=== PATIENT | female | born 1930 | race Caucasian/White ===

== ENCOUNTER 2016-10-15 00:02 | Emergency (ER) | payer OTHER, MEDICARE ==
[2016-10-15 00:19] VITALS: BP 169/86; BMI 24.2
--- NOTE | 2016-10-15 00:28 | DR.GENAD ---
HPI - PCP Primary Care Physician: BERNICE HAUSER - Complaint/Symptoms Chief Complaint Doctors Comments: Patient admits to being dizzy tonight while lying in bed. She denies any prior history of dizziness. She denies nausea, vomiting or diarrhea. She denies cardiopulmonary disease. Chief Complaint:: DIZZINESS WHILE LYING IN BED RESOLVED THEN CAME BACK AGAIN, Self Treatment fo Chief Complaint: NONE - Source History Provided: Patient - Mode of Arrival Mode of Arrival: Wheelchair - Timing Onset of Chief Complaint: 10/15/16 PMH - PMH Past Medical History: Yes Past Medical History: Anxiety, Arthritis, COPD, Depression, Hypertension Past Surgical History: Yes Surgical History: 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, Hysterectomy, Joint Replacement, Other - Family History History of Family Medical Conditions: Yes Family Medical History: Cancer, Heart Failure - Social History Does patient currently use any type of tobacco product: No Have you used tobacco products in the last 12 months: No Type of Tobacco Use: None Does any household member use tobacco: No Alcohol Use: None Do you use any recreational Drugs:: No Lives With: Family Lives Where: Home - infectious screening In the last 2 months have you had wt loss of >10#?: NO Have you had fever, night sweats or hemotysis?: No Have you traveled outside the country in the last 6 months?: No Isolation: Standard ROS - Review of Systems Constitutional: No Symptoms Reported Eyes: No Symptoms Reported ENTM: No Symptoms Reported Respiratoy: No Symptoms Reported Cardiovascular: No Symptoms Reported Gastrointestinal/Abdominal: No Symptoms Reported Genitourinary: No Symptoms Reported Neurological: Dizziness Musculoskeletal: No Symptoms Reported Integumentary: No Symptoms Reported Hematologic/Lymphatic: No Symptoms Reported Endocrine: No Symptoms Reported Psychiatric: No Symptoms Reported All Other Systems: Reviewed and Negative PE - Vital Signs Vitals: Temperature 97.8 F Pulse Rate 86 Respiratory Rate 16 Blood Pressure 169/86 O2 Sat by Pulse Oximetry 97 - General Limitations: No Limitations General Appearance: Alert, In No Apparent Distress - Head Head Exam: Normal Inspection, Atraumatic - Eyes Eye exam: Normal Appearance, PERRL, EOMI - ENT ENT Exam: Normal Exam External Ear Exam: Normal External Inspection TM/Canal Exam: Bilateral Normal Nose Exam: Normal Nose Exam Mouth Exam: Normal Inspection Throat Exam: Normal Inspection - Neck Neck Exam: Normal Inspection, Full ROM - Chest Chest Inspection: Normal Inspection - Respiratory Respiratory Exam: Normal Lung Sounds Bilat Respiratory Exam: Bilateral Clear to Auscultation - Cardiovascular Cardiovascular Exam: Regular Rate, Normal Rhythm - Abdominal Exam Abdominal Exam: Normal Inspection Abdominal Tenderness: negative: RUQ, RLQ, LUQ, LLQ, Epigastrium, Suprapubic, Diffuse, Mild, Moderate, Severe, Other - Extremities Extremities Exam: Normal Inspection, Full ROM - Back Back Exam: Normal Inspection, Full ROM - Neurologic Neurological Exam: Alert, Oriented X3, CN II-XII Intact - Psychiatric Psychiatric Exam: Normal Affect - Skin Skin Exam: Warm, Dry, Intact ROR - Labs Reviewed Laboratory Results Reviewed?: Yes (low potassium, elevated glucose) Result Diagrams: 10/15/16 00:36 04 00:36 Laboratory: WBC 3.3 X10^3/uL (3.6-10.0) L 10/15/16 00:36 RBC 4.49 X10^6/uL (3.5-5.4) 10/15/16 00:36 Hgb 13.9 g/dL (12.0-16.0) 10/15/16 00:36 Hct 41.7 % (36.0-47.0) 10/15/16 00:36 MCV 92.9 fL (80.0-100.0) 10/15/16 00:36 MCH 30.9 pg (27.0-34.0) 10/15/16 00:36 MCHC 33.3 g/dL (33.0-35.0) 10/15/16 00:36 RDW 14.6 % (11.6-16.5) 10/15/16 00:36 Plt Count 142 X10^3/uL (150.0-450.0) L 10/15/16 00:36 MPV 8.4 fL (7.4-11.0) 10/15/16 00:36 Neut % 84.2 % (42.0-75.0) H 10/15/16 00:36 Lymph % 12.9 % (21.0-51.0) L 10/15/16 00:36 [place] % 2.2 % (0.0-13.0) 10/15/16 00:36 Eos % 0.2 % (0.9-2.9) L 10/15/16 00:36 Baso % 0.5 % (0.2-1.0) 10/15/16 00:36 Neut # 2.7 x10^3/uL (2.2-4.8) 10/15/16 00:36 Lymph # 0.4 X10^3/uL (1.3-2.9) L 10/15/16 00:36 [place] # 0.1 x10^3/uL (0.3-0.8) L 10/15/16 00:36 Eos # 0.0 x10^3/uL (0.0-0.2) 10/15/16 00:36 Baso # 0.0 X10^3/uL (0.0-0.1) 10/15/16 00:36 Absolute Nucleated RBC 0.0 /100WBC 10/15/16 00:36 Sodium 142 mmol/L (136-145) 10/15/16 00:36 Corrected Sodium 145 mmol/L (136-145) 10/15/16 00:36 Potassium 3.4 mmol/L (3.5-5.1) L 10/15/16 00:36 Chloride 104 mmol/L (98-107) 10/15/16 00:36 Carbon Dioxide 28.5 mmol/L (21-32) 10/15/16 00:36 BUN 20 mg/dL (7-18) H 10/15/16 00:36 Creatinine 0.71 mg/dL (0.55-1.02) 10/15/16 00:36 Est GFR (MDRD) Af Amer > 60 (>60) 10/15/16 00:36 Est GFR (MDRD) Non-Af > 60 (>60) 10/15/16 00:36 Glucose 213 mg/dL (65-99) H 10/15/16 00:36 Calcium 8.8 mg/dL (8.5-10.1) 10/15/16 00:36 Corrected Calcium TNP 10/15/16 00:36 Total Bilirubin 0.30 mg/dL (0.2-1.0) 10/15/16 00:36 AST 30 Units/L (15-37) 10/15/16 00:36 ALT 28 Units/L (12-78) 10/15/16 00:36 Alkaline Phosphatase 112 Units/L (46-116) 10/15/16 00:36 Total Protein 7.6 g/dL (6.4-8.2) 10/15/16 00:36 Albumin 3.8 g/dL (3.4-5.0) 10/15/16 00:36 Globulin 3.8 g/dL (2.5-4.5) 10/15/16 00:36 Albumin/Globulin Ratio 1.0 Ratio (1.1-2.1) L 10/15/16 00:36 - XRAY XRAY Interpreted by: Radiologist (CT Brain: No acute intracranial procedd is identified. Confluent moderate bilateral periventricular and deep white matter hypoattenuation is nonspecific, clinical correlation for history of chronic microvascular ischemic disease, chronic demyelinating process or systemic inflammatory process/post therapy treatment effects.) - Diagnosis Discharge Problem: Hypokalemia, Dehydration, mild - Discharge Plan Condition: Stable - Follow ups/Referrals Follow ups/Referrals: JAVON HAUSER [Primary Care Provider] - 3 days - Instructions
[2016-10-15 00:44] LABS: BASOPHILS % (AUTO) 0.5 % (0.2-1.0); EOSINOPHILS % (AUTO) 0.2 % (0.9-2.9); HEMATOCRIT 41.7 % (36.0-47.0); HEMOGLOBIN 13.9 g/dL (12.0-16.0); LYMPHOCYTES # (AUTO) 0.4 X10^3/uL (1.3-2.9); LYMPHOCYTES % (AUTO) 12.9 % (21.0-51.0); MEAN CORPUSCULAR HEMOGLOBIN 30.9 pg (27.0-34.0); MEAN CORPUSCULAR HGB CONC 33.3 g/dL (33.0-35.0); MEAN CORPUSCULAR VOLUME 92.9 fL (80.0-100.0); MEAN PLATELET VOLUME 8.4 fL (7.4-11.0); MONOCYTES # (AUTO) 0.1 x10^3/uL (0.3-0.8); MONOCYTES % (AUTO) 2.2 % (0.0-13.0); NEUTROPHILS # (AUTO) 2.7 x10^3/uL (2.2-4.8); NEUTROPHILS % (AUTO) 84.2 % (42.0-75.0); PLATELET COUNT 142 X10^3/uL (150.0-450.0); RED BLOOD COUNT 4.49 X10^6/uL (3.5-5.4); RED CELL DISTRIBUTION WIDTH 14.6 % (11.6-16.5); WHITE BLOOD COUNT 3.3 X10^3/uL (3.6-10.0)
[2016-10-15 00:57] LABS: ALANINE AMINOTRANSFERASE 28 Units/L (12-78); ALBUMIN 3.8 g/dL (3.4-5.0); ALKALINE PHOSPHATASE 112 Units/L (46-116); ASPARTATE AMINO TRANSFERASE 30 Units/L (15-37); BLOOD UREA NITROGEN 20 mg/dL (7-18); CALCIUM 8.8 mg/dL (8.5-10.1); CARBON DIOXIDE 28.5 mmol/L (21-32); CHLORIDE 104 mmol/L (98-107); COR NA(FOR HYPERGLY) 145 mmol/L (136-145); CREATININE 0.71 mg/dL (0.55-1.02); GLUCOSE 213 mg/dL (65-99); SODIUM 142 mmol/L (136-145); TOTAL PROTEIN 7.6 g/dL (6.4-8.2); eGFR BLACK RACES > 60 (>60); eGFR NON BLACK RACES > 60 (>60)
--- NOTE | 2016-10-15 01:52 | CT ---
CT brain without contrast Indication: Dizziness while lying in bed Comparison: None available Technique: Multiple axial images of the brain were obtained from the skull base to the vertex without administr ation of IV contrast. Coronal and sagittal images were also provided. Radiation dose reduction techniques were performed utilizing adjustment for MA/kVP based on patient body size. Findings: There is complete moderate bilateral periventricular deep white matter hypoattenuation. Opacificatio n of bilateral basal ganglia. The mild generalized cerebral atrophy. No acute intraparenchymal hemorrhage or mass can be identified. No extra-axial fluid collections ar e seen. No alteration in the attenuation of the brain parenchyma can be identified to suggest acute or subacute ischemic change. The ventricular system is symmetric and nondilated. The extracranial structures are grossly unremarkable. IMPRESSION: 1.No acute intracranial process is identified. 2.Confluent moderate bilateral periventricular and deep white matter hypoattenuation is nonspecific, clinical correlation for history of chronic microvascular ischemic disease, chronic demyelinating p rocess or systemic inflammatory process/post therapy treatment effects. Reported By:
[2016-10-15] MEDS ORDERED: POTASSIUM CHLORIDE LIQ 20 MEQ UDC PO ONE (02:12)
[2016-10-15] MEDS ORDERED: ANTIVERT TAB 25 MG PO ONE (02:20)
[2016-10-15] MEDS ORDERED: K-DUR TAB 20 MEQ PO ONE (02:21)
[2016-10-15] MEDS ORDERED: ANTIVERT TAB 25 MG ONE (02:22)
[2016-10-15] MEDS ORDERED: NS 500 ML IV 500 ML IV ONE ×2 (02:26→02:31)
[2016-10-15 02:41] LABS: CKMB % 2.9 % (<4); CREATINE KINASE 34 Units/L (26-192); CREATINE KINASE MB < 1.0 ng/mL (0-4.0); TROPONIN I < 0.02 ng/mL (0-1.5)
== END 2016-10-15 03:20 | disposition home or self-care (01) ==
LOC: ER 00:16
DX: E87.6 Hypokalemia (principal); E86.0 Dehydration; R42 Dizziness and giddiness
CPT/HCPCS: 36415; 70450; 80053; 82550; 82553; 84484; 85025; 93005; 93010; 96365; 99283; A4222

== ENCOUNTER → 2016-11-04 | Outpatient (CLI) | payer OTHER, MEDICARE ==
[2016-10-15 00:19] VITALS: BP 169/86
[2016-11-04 10:17] LABS: CHOL/HDL RATIO 3.8 (0.0-5.0)
== END ==
LOC: LAB 08:39
PROVIDERS: ATTEND Nurse Practitioner Family
DX: Z76.0 Encounter for issue of repeat prescription (principal)
CPT/HCPCS: 36415; 80061; 82306; 84132

== ENCOUNTER 2016-11-23 16:03 | Emergency (ER) | payer OTHER, MEDICARE ==
[2016-11-23 16:07] VITALS: BP 157/89; BMI 24.8
--- NOTE | 2016-11-23 16:44 | DR.GENAD ---
HPI - PCP Primary Care Physician: Tremaine - HPI Comment HPI Comment: PER DAUGHTER, PATIENT STARTED HAVING CHEST TIGHTNESS AND SOB AND ACTING ANXIOUS, DAUGHTER GAVE PRN ATIVAN AND PATIENT IMPROVED, SHE IS FINE IN ED. DENIES CP. SHE HAS HAD SIMILAR EPISODE IN THE PAST, NO FEVER. - Complaint/Symptoms Chief Complaint Doctors Comments: SOB, FEELING BAD, NOTED TODAY Chief Complaint:: Pts states she started feeling funny today and was short of breath and very anxious. Pts daughter states she gave her an Ativan 1mg and now the pt is feeling better. Pts daughter states that she backed off her ativan and has not been taking it. - Nurses notes reviewed Nurses Notes Review: Yes - Source History Provided: Patient - Mode of Arrival Mode of Arrival: Ambulatory - Timing Onset of Chief Complaint: 11/23/16 Came on: Suddenly - Duration Duration: Constant Duration: Hours - Severity Severity: Moderate PMH - PMH Past Medical History: Yes Past Medical History: Anxiety, Arthritis, COPD, Depression, Hypertension Past Surgical History: Yes Surgical History: 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, Hysterectomy, Joint Replacement, Other - Family History History of Family Medical Conditions: Yes Family Medical History: Cancer, Heart Failure - Social History Does patient currently use any type of tobacco product: No Have you used tobacco products in the last 12 months: No Type of Tobacco Use: None Does any household member use tobacco: No Alcohol Use: None Do you use any recreational Drugs:: No Lives With: Family Lives Where: Home - infectious screening In the last 2 months have you had wt loss of >10#?: NO Have you had fever, night sweats or hemotysis?: No Have you traveled outside the country in the last 6 months?: No Isolation: Standard ROS - Review of Systems Constitutional: Weakness, Fatigue. negative: Chills, Diaphoresis, Fever, Loss of Appetite Eyes: No Symptoms Reported. negative: Eye Pain, Discharge ENTM: negative: Ear Pain, Nose Discharge, Nose Congestion, Throat Pain Respiratoy: Short of Breath (ON EXERTION.). negative: Productive Cough, Non- Productive Cough, Wheezing, Hemoptysis Cardiovascular: Chest Pain, Edema (ANKLE). negative: Palpitations Gastrointestinal/Abdominal: negative: Abdominal Pain Genitourinary: No Symptoms Reported Neurological: Weakness. negative: Headache, Dizziness Musculoskeletal: Muscle Pain Integumentary: Rash (STASIS DERMATITIS). negative: Change in Color, Bruises, Juandice Hematologic/Lymphatic: Easy Bruising Endocrine: No Symptoms Reported All Other Systems: Reviewed and Negative PE - Vital Signs Vitals: Temperature 98.6 F Pulse Rate 74 Respiratory Rate 18 Blood Pressure 157/89 O2 Sat by Pulse Oximetry 94 - General Limitations: No Limitations General Appearance: Alert - Head Head Exam: Normal Inspection - Eyes Eye exam: Normal Appearance - ENT ENT Exam: Normal External Ear Exam External Ear Exam: Normal External Inspection TM/Canal Exam: Bilateral Normal Nose Exam: Normal Nose Exam Mouth Exam: Normal Inspection Throat Exam: Normal Inspection - Neck Neck Exam: Trachea Midline. negative: Tenderness, Meningismus, Lymphadenopathy - Chest Chest Inspection: Symmetric Chest Wall Rise - Respiratory Respiratory Exam: Normal Lung Sounds Bilat Respiratory Exam: Bilateral Rhonchi, Lower Rhonchi - Cardiovascular Cardiovascular Exam: Regular Rate, Normal Rhythm - Abdominal Exam Abdominal Exam: Normal Bowel Sounds, Soft. negative: Tenderness - Extremities Extremities Exam: Edema - Back Back Exam: Paraspinal Tenderness - Neurologic Neurological Exam: Alert, Oriented X3 - Psychiatric Psychiatric Exam: Normal Affect, Normal Mood - Skin Skin Exam: Erythema MDM - Additional Information Additional Information Obtained From: Family - Differential Diagnosis Differential Diagnosis: ARRYTHMIA, [place], PNEUMONIA, DEHYDRATION, Course - Treatment Treatment: SEE ORDERS. PATIENT IMPROVED AFTER DAUGHTER GAVE PATIENT MED FOR PRN ANXIETY. - Reevaluation 1st: Improved - Education/Counseling Education/Counseling: Patient, Family, Education Educated On: Diagnosis, Needs for Follow Up ROR - Labs Reviewed Laboratory Results Reviewed?: Yes Result Diagrams: 11/23/16 17:04 11/23/16 17:04 Laboratory: WBC 4.9 X10^3/uL (3.6-10.0) 11/23/16 17:04 RBC 4.61 X10^6/uL (3.5-5.4) 11/23/16 17:04 Hgb 14.3 g/dL (12.0-16.0) 11/23/16 17:04 Hct 42.9 % (36.0-47.0) 11/23/16 17:04 MCV 93.0 fL (80.0-100.0) 11/23/16 17:04 MCH 31.0 pg (27.0-34.0) 11/23/16 17:04 MCHC 33.3 g/dL (33.0-35.0) 11/23/16 17:04 RDW 15.0 % (11.6-16.5) 11/23/16 17:04 Plt Count 155 X10^3/uL (150.0-450.0) 11/23/16 17:04 MPV 8.2 fL (7.4-11.0) 11/23/16 17:04 Neut % 75.4 % (42.0-75.0) H 11/23/16 17:04 Lymph % 14.7 % (21.0-51.0) L 11/23/16 17:04 [place] % 8.0 % (0.0-13.0) 11/23/16 17:04 Eos % 1.2 % (0.9-2.9) 11/23/16 17:04 Baso % 0.7 % (0.2-1.0) 11/23/16 17:04 Neut # 3.7 x10^3/uL (2.2-4.8) 11/23/16 17:04 Lymph # 0.7 X10^3/uL (1.3-2.9) L 11/23/16 17:04 [place] # 0.4 x10^3/uL (0.3-0.8) 11/23/16 17:04 Eos # 0.1 x10^3/uL (0.0-0.2) 11/23/16 17:04 Baso # 0.0 X10^3/uL (0.0-0.1) 11/23/16 17:04 Absolute Nucleated RBC 0.0 /100WBC 11/23/16 17:04 Sodium 143 mmol/L (136-145) 11/23/16 17:04 Corrected Sodium TNP 11/23/16 17:04 Potassium 3.9 mmol/L (3.5-5.1) 11/23/16 17:04 Chloride 105 mmol/L (98-107) 11/23/16 17:04 Carbon Dioxide 31.9 mmol/L (21-32) 11/23/16 17:04 BUN 13 mg/dL (7-18) 11/23/16 17:04 Creatinine 0.57 mg/dL (0.55-1.02) 11/23/16 17:04 Est GFR (MDRD) Af Amer > 60 (>60) 11/23/16 17:04 Est GFR (MDRD) Non-Af > 60 (>60) 11/23/16 17:04 Glucose 94 mg/dL (65-99) 11/23/16 17:04 Calcium 8.9 mg/dL (8.5-10.1) 11/23/16 17:04 Corrected Calcium TNP 11/23/16 17:04 Total Bilirubin 0.40 mg/dL (0.2-1.0) 11/23/16 17:04 AST 30 Units/L (15-37) 11/23/16 17:04 ALT 31 Units/L (12-78) 11/23/16 17:04 Alkaline Phosphatase 102 Units/L (46-116) 11/23/16 17:04 Creatine Kinase 29 Units/L (26-192) 11/23/16 17:04 CK-MB (CK-2) < 1.0 ng/mL (0-4.0) 11/23/16 17:04 CK/CKMB % Calc 3.5 % (<4) 11/23/16 17:04 Troponin I < 0.02 ng/mL (0-1.5) 11/23/16 17:04 Total Protein 7.6 g/dL (6.4-8.2) 11/23/16 17:04 Albumin 3.9 g/dL (3.4-5.0) 11/23/16 17:04 Globulin 3.7 g/dL (2.5-4.5) 11/23/16 17:04 Albumin/Globulin Ratio 1.1 Ratio (1.1-2.1) 11/23/16 17:04 Specimen Type Clean catch urine 11/23/16 17:04 Urine Color Pale yellow (YELLOW) 11/23/16 17:04 Urine Appearance Clear (CLEAR) 11/23/16 17:04 Urine pH 7.0 (5.0 - 8.0) 11/23/16 17:04 Ur Specific [place] 1.010 (1.000-1.030) 11/23/16 17:04 Urine Protein Negative (NEGATIVE) 11/23/16 17:04 Urine Glucose (UA) Negative (NEGATIVE) 11/23/16 17:04 Urine Ketones Negative (NEGATIVE) 11/23/16 17:04 Urine Occult Blood Negative (NEGATIVE) 11/23/16 17:04 Urine Nitrite Negative (NEGATIVE) 11/23/16 17:04 Urine Bilirubin Negative (NEGATIVE) 11/23/16 17:04 Urine Urobilinogen Normal (NORMAL) 11/23/16 17:04 Ur Leukocyte Esterase Negative (NEGATIVE) 11/23/16 17:04 Urine RBC 0-1 /HPF (NEGATIVE) 11/23/16 17:04 Urine WBC None seen /HPF (NEGATIVE) 11/23/16 17:04 Ur Squamous Epith Cells Few /HPF (NEGATIVE) 11/23/16 17:04 Amorphous Sediment Trace /HPF (NEGATIVE) 11/23/16 17:04 Urine Bacteria Trace /HPF (NEGATIVE) 11/23/16 17:04 Ur Culture Indicated? No/not indicated 11/23/16 17:04 - EKG Rhythm: NSR (EKG NOTED.) - Diagnosis Discharge Problem: Generalized anxiety disorder - Discharge Plan Disposition: 01 HOME, SELF-CARE Condition: Stable - Follow ups/Referrals Follow ups/Referrals: Candis Penaloza [Primary Care Provider] - 3 days - Instructions Instructions: Generalized Anxiety Disorder Additional Instructions: RETURN TO ED IF WORSE.
[2016-11-23] MEDS ORDERED: ZOFRAN INJ 4 MG VIAL ONE (16:57)
[2016-11-23 17:13] LABS: BASOPHILS % (AUTO) 0.7 % (0.2-1.0); EOSINOPHILS # (AUTO) 0.1 x10^3/uL (0.0-0.2); EOSINOPHILS % (AUTO) 1.2 % (0.9-2.9); HEMATOCRIT 42.9 % (36.0-47.0); HEMOGLOBIN 14.3 g/dL (12.0-16.0); LYMPHOCYTES # (AUTO) 0.7 X10^3/uL (1.3-2.9); LYMPHOCYTES % (AUTO) 14.7 % (21.0-51.0); MEAN CORPUSCULAR HGB CONC 33.3 g/dL (33.0-35.0); MEAN PLATELET VOLUME 8.2 fL (7.4-11.0); MONOCYTES # (AUTO) 0.4 x10^3/uL (0.3-0.8); NEUTROPHILS # (AUTO) 3.7 x10^3/uL (2.2-4.8); NEUTROPHILS % (AUTO) 75.4 % (42.0-75.0); PLATELET COUNT 155 X10^3/uL (150.0-450.0); RED BLOOD COUNT 4.61 X10^6/uL (3.5-5.4); WHITE BLOOD COUNT 4.9 X10^3/uL (3.6-10.0)
[2016-11-23 17:22] LABS: BILIRUBIN,URINE NEGATIVE (NEGATIVE); BLOOD/HEMOGLOBIN,URINE NEGATIVE (NEGATIVE); GLUCOSE, URINE NEGATIVE (NEGATIVE); KETONES,URINE NEGATIVE (NEGATIVE); LEUKOCYTE ESTERASE ,URINE NEGATIVE (NEGATIVE); NITRITES,URINE NEGATIVE (NEGATIVE); PROTEIN,URINE NEGATIVE (NEGATIVE); UROBILINOGEN,URINE NORMAL (NORMAL)
[2016-11-23 17:34] LABS: APPEARANCE,URINE CLEAR (CLEAR); COLOR,URINE PALE YELLOW (YELLOW); RBC,URINE 0-1 /HPF (NEGATIVE)
[2016-11-23 17:35] LABS: AMORPHOUS SEDIMENT,UR TRACE /HPF (NEGATIVE); BACTERIA,URINE TRACE /HPF (NEGATIVE); SQUAMOUS EPITHELIAL CELL,UR FEW /HPF (NEGATIVE)
[2016-11-23 17:51] LABS: BLOOD UREA NITROGEN 13 mg/dL (7-18); CALCIUM 8.9 mg/dL (8.5-10.1); CARBON DIOXIDE 31.9 mmol/L (21-32); CHLORIDE 105 mmol/L (98-107); CREATININE 0.57 mg/dL (0.55-1.02); GLUCOSE 94 mg/dL (65-99); SODIUM 143 mmol/L (136-145); TROPONIN I < 0.02 ng/mL (0-1.5); eGFR BLACK RACES > 60 (>60); eGFR NON BLACK RACES > 60 (>60)
[2016-11-23 17:56] LABS: ALANINE AMINOTRANSFERASE 31 Units/L (12-78); ALBUMIN 3.9 g/dL (3.4-5.0); ALKALINE PHOSPHATASE 102 Units/L (46-116); ASPARTATE AMINO TRANSFERASE 30 Units/L (15-37); CKMB % 3.5 % (<4); CREATINE KINASE 29 Units/L (26-192); CREATINE KINASE MB < 1.0 ng/mL (0-4.0); TOTAL PROTEIN 7.6 g/dL (6.4-8.2)
== END 2016-11-23 18:06 | disposition home or self-care (01) ==
LOC: ER 16:12
DX: F41.1 Generalized anxiety disorder (principal)
CPT/HCPCS: 36415; 80053; 81001; 82550; 82553; 84484; 85025; 93005; 93010; 99282; 99283; J2405

== ENCOUNTER → 2016-12-07 | Outpatient (CLI) | payer OTHER, MEDICARE ==
--- NOTE | 2016-12-07 15:04 | MG ---
Examination: Bilateral screening mammogram. Clinical history: Routine screening. Technique: Digital CC and MLO views of both breasts were obtained. Computer aided detection analysis was performed and used during the interpretation. Comparison: 12/05/2015, 10/22/2014, 10/22/2013. Findings: The breasts are composed of scattered fibroglandular densities. Benign-appearing calcifications and vascular calcifications are noted in the breasts bilaterally. Skin moles are present overlying both breasts. No suspicious mass, area of architectural distortion or suspicious cluster of microcalcifications is noted. Impression: 1. No mammographic evidence of malignancy. BI-RADS category 2-benign findings. Recommend routine annual screening mammogram. Diagnostic CAD was utilized and reviewed. * 0 (ZERO) - ASSESSMENT INCOMPLETE; ADDITIONAL IMAGING IS NEEDED. * 0C - ASSESSMENT INCOMPLETE, NEEDS ADDITIONAL IMAGING EVALUATION AND/OR PRIOR MAMMOGRAMS FOR COMPAR LYNDON. * 1/1 (ONE) - NEGATIVE. * 2/II (TWO) - BENIGN FINDINGS. * 3/III (THREE) - PROBABLY BENIGN FINDING; SHORT INTERVAL FOLLOW-UP SUGGESTED. * 4/IV (FOUR) - SUSPICIOUS ABNORMALITY; BIOPSY SHOULD BE CONSIDERED. * 5/V - HIGHLY SUSPICIOUS OF MALIGNANCY; BIOPSY SHOULD BE PERFORMED. * 6/IV - KNOWN BIOPSY PROVEN MALIGNANCY-APPROPRIATE ACTION SHOULD BE TAKEN. A NEGATIVE X-RAY REPORT SHOULD NOT DELAY BIOPSY IF A DOMINANT OR CLINICALLY SUSPICIOUS MASS IS PRESENT; 4 TO 8 PERCENT OF CANCERS ARE NOT IDENTIFIED BY X-RAY. A NEGATIVE REPORT MAY REINFORCE THE CLINICAL IMPRESSION. ADENOSIS AND DENSE BREASTS MAY OBSCURE AN UNDERLYING NEOPLASM. Reported By:
== END ==
LOC: RAD 11:07
PROVIDERS: ATTEND Nurse Practitioner Family
DX: Z12.31 Encounter for screening mammogram for malignant neoplasm of breast (principal)
CPT/HCPCS: 77067

== ENCOUNTER 2016-12-31 17:45 | Emergency (ER) | payer OTHER, MEDICARE ==
[2016-12-31 17:50] VITALS: BP 136/85; BMI 24.2
== END 2016-12-31 19:07 | disposition left against medical advice (07) ==
LOC: ER 17:55
DX: M79.602 Pain in left arm (principal)
CPT/HCPCS: 99281

== ENCOUNTER 2017-03-02 17:38 | Emergency (ER) | payer OTHER, MEDICARE ==
[2017-03-02 17:44] VITALS: BP 135/66; BMI 23.8
--- NOTE | 2017-03-02 18:05 | DR.GENAD ---
HPI - PCP Primary Care Physician: AP - Complaint/Symptoms Chief Complaint Doctors Comments: Patient is being treated by her primary care physician for sinusitis. Chief Complaint:: "SINUS INFRECTION" Self Treatment fo Chief Complaint: SEEN DOCTOR AP YESTERDAY - Source History Provided: Patient - Mode of Arrival Mode of Arrival: Ambulatory - Timing Onset of Chief Complaint: 02/23/17 PMH - PMH Past Medical History: Yes Past Medical History: Anxiety, Arthritis, COPD, Dementia, Depression, Hypertension Past Surgical History: Yes Surgical History: 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, [employer] Surgery, Hysterectomy, Joint Replacement - Family History History of Family Medical Conditions: Yes Family Medical History: Diabetes Mellitus, Cancer, [place], Coronary Artery Disease, Sudden Cardiac - Social History Does patient currently use any type of tobacco product: No Have you used tobacco products in the last 12 months: No Type of Tobacco Use: None Does any household member use tobacco: No Alcohol Use: None Do you use any recreational Drugs:: No Lives With: Family Lives Where: Home - infectious screening In the last 2 months have you had wt loss of >10#?: NO Have you had fever, night sweats or hemotysis?: No Have you traveled outside the country in the last 6 months?: No Isolation: Standard ROS - Review of Systems Eyes: No Symptoms Reported ENTM: No Symptoms Reported Respiratoy: No Symptoms Reported Cardiovascular: No Symptoms Reported Gastrointestinal/Abdominal: No Symptoms Reported Genitourinary: No Symptoms Reported Neurological: No Symptoms Reported Musculoskeletal: No Symptoms Reported Integumentary: No Symptoms Reported Hematologic/Lymphatic: No Symptoms Reported Endocrine: No Symptoms Reported Psychiatric: No Symptoms Reported All Other Systems: Reviewed and Negative PE - Vital Signs Vitals: Temperature 99.5 F Pulse Rate 84 Respiratory Rate 18 Blood Pressure [Left Arm] 136/75 Blood Pressure 135/66 O2 Sat by Pulse Oximetry 90 - General Limitations: Other (Early Dementia) General Appearance: Alert, In No Apparent Distress - Head Head Exam: Normal Inspection, Atraumatic - Eyes Eye exam: Normal Appearance, PERRL, EOMI - ENT ENT Exam: Normal Exam External Ear Exam: Normal External Inspection TM/Canal Exam: Bilateral Normal Nose Exam: Normal Nose Exam Mouth Exam: Normal Inspection Throat Exam: Normal Inspection - Neck Neck Exam: Normal Inspection, Full ROM - Chest Chest Inspection: Normal Inspection, Symmetric Chest Wall Rise - Respiratory Respiratory Exam: Normal Lung Sounds Bilat Respiratory Exam: Bilateral Clear to Auscultation - Cardiovascular Cardiovascular Exam: Regular Rate, Normal Rhythm - Abdominal Exam Abdominal Exam: Normal Inspection Abdominal Tenderness: negative: RUQ, RLQ, LUQ, LLQ, Epigastrium, Suprapubic, Diffuse, Mild, Moderate, Severe, Other - Extremities Extremities Exam: Normal Inspection, Full ROM - Back Back Exam: Normal Inspection, Full ROM - Neurologic Neurological Exam: Alert, Oriented X3, CN II-XII Intact - Psychiatric Psychiatric Exam: Normal Affect, Normal Mood - Skin Skin Exam: Warm, Dry, Intact ROR - XRAY XRAY Interpreted by: Radiologist (CT Sinus: Mild to moderate acute on chronic bilateral ethmoid sinusitis. Minimal maxillary sinus disease is noted.) - Diagnosis Discharge Problem: Sinusitis Qualifiers: Sinusitis location: ethmoidal Chronicity: acute Recurrence: recurrent Qualified Code(s): J01.21 - Acute recurrent ethmoidal sinusitis - Discharge Plan Condition: Stable - Follow ups/Referrals Follow ups/Referrals: Matthew Nelson [Primary Care Provider] - 3 days - Instructions
--- NOTE | 2017-03-02 19:03 | CT ---
HISTORY: Sinusitis, facial pressure Study: CT paranasal sinuses without contrast Comparison: January 01, 2017 and September 20, 2012 Technique: Multiple axial images of the paranasal sinuses were obtained without administration of IV contrast. AEC was utilized. Findings: There is mild to moderate bilateral ethmoid sinus mucosal thickening, left greater than right, with t he left frontoethmoidal recess nearly occluded. There are mucosal inflammatory changes along the osti omeatal units, but they remain patent. Trace right maxillary sinus mucosal thickening is noted. The f rontal and sphenoid sinuses are clear. There is nasal septal deviation and spurring to the right post eriorly and to the left anteriorly. There is a small left ethmoid air-fluid level which could indicat e an acute component. No osseous dehiscence is identified. There are no findings of aggressive invasi ve or fungal sinusitis. No destructive osseous lesions are seen. The mastoids are clear. Imaging of t he intracranial structures demonstrates vascular calcifications and findings of chronic microvascular ischemic disease. IMPRESSION: Mild to moderate acute on chronic bilateral ethmoid sinusitis. Minimal maxillary sinus disease is not ed. Reported By:
== END 2017-03-02 19:22 | disposition home or self-care (01) ==
LOC: ER 17:50
DX: J01.21 Acute recurrent ethmoidal sinusitis (principal)
CPT/HCPCS: 70486; 99282

== ENCOUNTER 2017-03-06 02:08 | Inpatient (IN) | payer OTHER, MEDICARE ==
[2017-03-06 02:19] VITALS: BMI 23.8
[2017-03-06] MEDS ORDERED: DUONEB 0.5 MG/3 MG NEB ONE (02:36)
--- NOTE | 2017-03-06 02:41 | DR.GENAD ---
HPI - PCP Primary Care Physician: AP - Complaint/Symptoms Chief Complaint Doctors Comments: Patient complains of cough with increased congestion and problems getting all the congestion up with problems breathing with xiphoid chest pain. States she has a sinus infection and is still taking antibiotics for the infection but she does not know the name of the antibiotic. She was in the emergency room two days ago and told she had a sinus infection. She denies fever, chills, nausea or vomiting. Family states she woke them up with congestion and problems breathing and they brought her to the emergency room. She does not have home oxygen or nebulizers at [facility]. 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 She is a patient of Dr. Nelson and states she does not have any problems with her heart that she is aware of. She denies swelling in her hands or feet. Chief Complaint:: " IM HAVING PAIN IN MY IN UPPER STOMACH AND IN MY CHEST I ALSO GOT A SINUS INFECTION AND I GOT A HEADACHE" - Nurses notes reviewed Nurses Notes Review: Yes - Source History Provided: Patient - Mode of Arrival Mode of Arrival: Ambulatory - Timing Onset of Chief Complaint: 03/05/17 Came on: Gradually - Duration Duration: Constant How lon Duration: Days - Location Location: congestion with cough - Severity Severity: Moderate - Modifying Factors Worsens:: coughing Improves:: nothing PMH - PMH Past Medical History: Yes Past Medical History: Anxiety, Arthritis, COPD, Dementia, Depression, Hypertension Past Surgical History: Yes Surgical History: 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 negative: See HPI, Chills, Diaphoresis, Fever, Malaise, Irritable, Fatigue, Loss of Appetite, Other Eyes: No Symptoms Reported ENTM: No Symptoms Reported, Nose Discharge, Nose Congestion. negative: See HPI , Ear Pain, Ear Discharge, Pulling on Ears, Hearing Loss, Nose Pain, Epistaxis, Mouth Pain, Mouth Swelling, Loose Teeth, Drooling, Throat Pain, Throat Swelling , Ear Foreign Body Respiratoy: No Symptoms Reported, Productive Cough, Short of Breath. negative: See HPI, Non-Productive Cough, Moist Cough, Dry Cough, Hacking Cough, Barking Cough, Brassy Cough, Orthopnea, Stridor, Wheezing, Hemoptysis, Other Cardiovascular: Chest Pain. negative: No Symptoms Reported, See HPI, Edema, Palpitations, Syncope, Cyanosis, Skin Mottling, Other Gastrointestinal/Abdominal: No Symptoms Reported, Abdominal Pain (epigastric pain). negative: See HPI, Constipation, Diarrhea, Nausea, Vomiting, Food Intolerance, Other Genitourinary: No Symptoms Reported Neurological: No Symptoms Reported Musculoskeletal: No Symptoms Reported Integumentary: No Symptoms Reported. negative: See HPI, Change in Color, Change in Hair/Nails, Dryness, Lesions, Lumps, Rash, Itching, Wound, Bruises, Juandice, Other Hematologic/Lymphatic: No Symptoms Reported Endocrine: No Symptoms Reported. negative: See HPI, Excessive Sweating, Flushing, Intolerance to Cold, Intolerance to Heat, Increased Hunger, Increased Thirst, Increased Urine, Unexplained Weight Gain, Unexplained Weight Loss, Failure to Thrive, Decreased Appetite, Other Psychiatric: No Symptoms Reported. negative: See HPI, Anxiety, Depression, Hallucinations, Excessive crying, Suicidal, Other PE - Vital Signs Vitals: Temperature 98.7 F Pulse Rate 72 Respiratory Rate 20 Blood Pressure [Left Arm] 136/75 Blood Pressure 143/85 O2 Sat by Pulse Oximetry 94 - General Limitations: No Limitations General Appearance: Alert, In Distress (moderate) - Head Head Exam: Normal Inspection, Atraumatic, Normocephalic - Eyes Eye exam: Normal Appearance, PERRL, EOMI. negative: Scleral Icterus, Conjunctival Injection, Nystagmus, Miosis, Mydrasis, Periorbital Swelling, Periorbital Tenderness, Other - ENT ENT Exam: Normal Exam, Normal Oropharynx, Normal External Ear Exam, Mucous Membranes Moist, TM's Normal Bilaterally External Ear Exam: Normal External Inspection TM/Canal Exam: Bilateral Normal Nose Exam: Normal Nose Exam, Sinus Tenderness Mouth Exam: Normal Inspection. negative: Drooling, Trismus, Lip Swelling, Tongue Elevation, Tongue Swelling, Laceration, Other Throat Exam: Normal Inspection. negative: Tonsillar Erythema, Tonsillomegaly, Tonsillar Exudate, R Peritonsillar Mass, L Peritonsillar Mass, Muffled Voice, Other - Neck Neck Exam: Normal Inspection, Full ROM, Trachea Midline. negative: Tenderness, Meningismus, Lymphadenopathy, Thyromegaly, Other - Chest Chest Inspection: Normal Inspection, Symmetric Chest Wall Rise. negative: Tenderness, Rash, Abscess, Other - Respiratory Respiratory Exam: Normal Lung Sounds Bilat, Prolonged Expiratory Phase Respiratory Exam: Bilateral Wheezing, Bilateral Rales (bibasilar rales), Bilateral Rhonchi, Bilateral Decreased Breath Sounds - Cardiovascular Cardiovascular Exam: Regular Rate, Normal Rhythm, Normal Heart Sounds, Systolic Murmur - Abdominal Exam Abdominal Exam: Normal Inspection, Normal Bowel Sounds, Soft. negative: Distention, Tenderness, Guarding, Rebound, Rigidity, Dimnished Bowel Sounds, Hyperactive Bowel Sounds, Hypoactive Bowel Sounds, Organomegaly, Trauma, Incision, Ascites, Mass, Bruit, Pulsatile Mass, Hernia, Other Abdominal Tenderness: Epigastrium, Mild - Extremities Extremities Exam: Normal Inspection, Full ROM, Normal Capillary Refill. negative: Tenderness, Edema, Joint Swelling, Calf Tenderness, Other - Back Back Exam: Normal Inspection, Full ROM. negative: Tenderness, (R) CVA Tenderness, (L) CVA Tenderness, Muscle Spasm, Paraspinal Tenderness, Vertebral Tenderness, Rashes, (R) Sciatic Notch Tenderness, (L) Sciatic Notch Tendern, (R ) Straight Leg Raise, (L) Straight Leg Raise, Other - Neurologic Neurological Exam: Alert, Oriented X3, CN II-XII Intact, Reflexes Normal. negative: Normal Gait (gait not tested; decreased hearing) - Psychiatric Psychiatric Exam: Normal Affect, Normal Mood - Skin Skin Exam: Warm, Dry, Intact, Normal Color Course - Reevaluation 1st: Improved - Consultation Called: 05:49 Call Returned: 05:49 (Dr. Hill to admit) - Education/Counseling Education/Counseling: Patient, Family Educated On: Treatment, Diagnosis, Needs for Follow Up ROR - Labs Reviewed Laboratory Results Reviewed?: Yes (all labs and x-ray results reviewed and discussed with patient and family) Result Diagrams: 03/06/17 02:40 03/06/17 02:40 Laboratory: WBC 4.7 X10^3/uL (3.6-10.0) 03/06/17 02:40 RBC 4.08 X10^6/uL (3.5-5.4) 03/06/17 02:40 Hgb 12.8 g/dL (12.0-16.0) 03/06/17 02:40 Hct 37.7 % (36.0-47.0) 03/06/17 02:40 MCV 92.4 fL (80.0-100.0) 03/06/17 02:40 MCH 31.5 pg (27.0-34.0) 03/06/17 02:40 MCHC 34.1 g/dL (33.0-35.0) 03/06/17 02:40 RDW 13.8 % (11.6-16.5) 03/06/17 02:40 Plt Count 198 X10^3/uL (150.0-450.0) 03/06/17 02:40 MPV 8.2 fL (7.4-11.0) 03/06/17 02:40 Neut % 70.9 % (42.0-75.0) 03/06/17 02:40 Lymph % 10.3 % (21.0-51.0) L 03/06/17 02:40 [place] % 12.9 % (0.0-13.0) 03/06/17 02:40 Eos % 5.1 % (0.9-2.9) H 03/06/17 02:40 Baso % 0.8 % (0.2-1.0) 03/06/17 02:40 Neut # 3.3 x10^3/uL (2.2-4.8) 03/06/17 02:40 Lymph # 0.5 X10^3/uL (1.3-2.9) L 03/06/17 02:40 [place] # 0.6 x10^3/uL (0.3-0.8) 03/06/17 02:40 Eos # 0.2 x10^3/uL (0.0-0.2) 03/06/17 02:40 Baso # 0.0 X10^3/uL (0.0-0.1) 03/06/17 02:40 Absolute Nucleated RBC 0.0 /100WBC 03/06/17 02:40 INR Target Range - 03/06/17 02:40 INR 1.22 (0.8-1.3) 03/06/17 02:40 PTT 35.7 SECONDS (22.9-36.5) 03/06/17 02:40 PTT Comment - 03/06/17 02:40 D-Dimer 831 ng/mL (0-400) H* 03/06/17 02:40 Sodium 140 mmol/L (136-145) 03/06/17 02:40 Corrected Sodium TNP 03/06/17 02:40 Potassium 3.3 mmol/L (3.5-5.1) L 03/06/17 02:40 Chloride 105 mmol/L (98-107) 03/06/17 02:40 Carbon Dioxide 30.2 mmol/L (21-32) 03/06/17 02:40 BUN 15 mg/dL (7-18) 03/06/17 02:40 Creatinine 0.61 mg/dL (0.55-1.02) 03/06/17 02:40 Est GFR (MDRD) Af Amer > 60 (>60) 03/06/17 02:40 Est GFR (MDRD) Non-Af > 60 (>60) 03/06/17 02:40 Glucose 105 mg/dL (65-99) H 03/06/17 02:40 Calcium 8.7 mg/dL (8.5-10.1) 03/06/17 02:40 Corrected Calcium 9.7 mg/dL (8.5-10.1) 03/06/17 02:40 Magnesium 1.7 mg/dL (1.7-2.9) 03/06/17 02:40 Total Bilirubin 0.40 mg/dL (0.2-1.0) 03/06/17 02:40 AST 24 Units/L (15-37) 03/06/17 02:40 ALT 23 Units/L (12-78) 03/06/17 02:40 Alkaline Phosphatase 124 Units/L (46-116) H 03/06/17 02:40 Creatine Kinase 21 Units/L (26-192) L 03/06/17 02:40 CK-MB (CK-2) < 1.0 ng/mL (0-4.0) 03/06/17 02:40 CK/CKMB % Calc 4.8 % (<4) 03/06/17 02:40 Troponin I < 0.02 ng/mL (0-1.5) 03/06/17 02:40 B-Natriuretic Peptide 50.6 pg/mL (0-79) 03/06/17 02:40 Total Protein 6.7 g/dL (6.4-8.2) 03/06/17 02:40 Albumin 2.8 g/dL (3.4-5.0) L 03/06/17 02:40 Globulin 3.9 g/dL (2.5-4.5) 03/06/17 02:40 Albumin/Globulin Ratio 0.7 Ratio (1.1-2.1) L 03/06/17 02:40 Specimen Type Clean catch urine 03/06/17 03:19 Urine Color Yellow (YELLOW) 03/06/17 03:19 Urine Appearance Clear (CLEAR) 03/06/17 03:19 Urine pH 7.0 (5.0 - 8.0) 03/06/17 03:19 Ur Specific [place] 1.010 (1.000-1.030) 03/06/17 03:19 Urine Protein Negative (NEGATIVE) 03/06/17 03:19 Urine Glucose (UA) Negative (NEGATIVE) 03/06/17 03:19 Urine Ketones Negative (NEGATIVE) 03/06/17 03:19 Urine Occult Blood Negative (NEGATIVE) 03/06/17 03:19 Urine Nitrite Negative (NEGATIVE) 03/06/17 03:19 Urine Bilirubin Negative (NEGATIVE) 03/06/17 03:19 Urine Urobilinogen Normal (NORMAL) 03/06/17 03:19 Ur Leukocyte Esterase 1+ (NEGATIVE) 03/06/17 03:19 Urine RBC 0-3 /HPF (NEGATIVE) 03/06/17 03:19 Urine WBC 0-3 /HPF (NEGATIVE) 03/06/17 03:19 Ur Squamous Epith Cells Rare /HPF (NEGATIVE) 03/06/17 03:19 Urine Bacteria Negative /HPF (NEGATIVE) 03/06/17 03:19 Ur Culture Indicated? No/not indicated 03/06/17 03:19 H. pylori IgG Antibody Negative (NEGATIVE) 03/06/17 02:40 - Other Results Comments: CTA chest: Advanced pulmonary fivrosis throughout both lungs. Ground-glass attenuation, bronciieactasis and honeycoming bilaterally. Thoracic aorta 4.3 cm anuerysmal dilation. No pulmonary embolism. - XRAY XRAY Interpreted by: Radiologist - EKG Rate: 73 [place]: Normal Rhythm: NSR Block: None Hypertrophy: None ST: Old, Ant, Infarct - Diagnosis Discharge Problem: Acute respiratory distress, Hypoxemia, Congestive heart failure, Bronchiectasis , Thoracic aortic aneurysm, Hypokalemia, Coronary artery disease - Discharge Plan Disposition: 09 ADMITTED INPATIENT Condition: Stable - Follow ups/Referrals Follow ups/Referrals: Matthew Nelson [Primary Care Provider] - 3 days - Instructions
[2017-03-06 03:00] LABS: BASOPHILS % (AUTO) 0.8 % (0.2-1.0); EOSINOPHILS # (AUTO) 0.2 x10^3/uL (0.0-0.2); EOSINOPHILS % (AUTO) 5.1 % (0.9-2.9); HEMATOCRIT 37.7 % (36.0-47.0); HEMOGLOBIN 12.8 g/dL (12.0-16.0); LYMPHOCYTES # (AUTO) 0.5 X10^3/uL (1.3-2.9); LYMPHOCYTES % (AUTO) 10.3 % (21.0-51.0); MEAN CORPUSCULAR HEMOGLOBIN 31.5 pg (27.0-34.0); MEAN CORPUSCULAR HGB CONC 34.1 g/dL (33.0-35.0); MEAN CORPUSCULAR VOLUME 92.4 fL (80.0-100.0); MEAN PLATELET VOLUME 8.2 fL (7.4-11.0); MONOCYTES # (AUTO) 0.6 x10^3/uL (0.3-0.8); MONOCYTES % (AUTO) 12.9 % (0.0-13.0); NEUTROPHILS # (AUTO) 3.3 x10^3/uL (2.2-4.8); NEUTROPHILS % (AUTO) 70.9 % (42.0-75.0); PLATELET COUNT 198 X10^3/uL (150.0-450.0); RED BLOOD COUNT 4.08 X10^6/uL (3.5-5.4); RED CELL DISTRIBUTION WIDTH 13.8 % (11.6-16.5); WHITE BLOOD COUNT 4.7 X10^3/uL (3.6-10.0)
[2017-03-06 03:10] LABS: BLOOD UREA NITROGEN 15 mg/dL (7-18); CALCIUM 8.7 mg/dL (8.5-10.1); CARBON DIOXIDE 30.2 mmol/L (21-32); CHLORIDE 105 mmol/L (98-107); CREATININE 0.61 mg/dL (0.55-1.02); SODIUM 140 mmol/L (136-145); TROPONIN I < 0.02 ng/mL (0-1.5); eGFR BLACK RACES > 60 (>60); eGFR NON BLACK RACES > 60 (>60)
--- NOTE | 2017-03-06 03:14 | RAD ---
EXAM: Chest X-ray INDICATION: Chest pain COMPARISION: Prior exam from December 15, 2016 TECHNIQUE: Single view FINDINGS: The heart is mildly enlarged and there is central vascular congestion. The interstitial markings are prominent bilaterally. No pneumothorax or pleural effusion. Increased density noted in the right lowe r lobe. The regional skeleton is intact. IMPRESSION: Findings are most characteristic of changes associated congestive heart failure. There is cardiomegal y, central vascular congestion, and interstitial edema. Edema versus pneumonia in the right lower lob e. Reported By:
[2017-03-06 03:15] LABS: ALANINE AMINOTRANSFERASE 23 Units/L (12-78); ALBUMIN 2.8 g/dL (3.4-5.0); ALKALINE PHOSPHATASE 124 Units/L (46-116); ASPARTATE AMINO TRANSFERASE 24 Units/L (15-37); CKMB % 4.8 % (<4); COR CA(FOR HYPOALB) 9.7 mg/dL (8.5-10.1); CREATINE KINASE 21 Units/L (26-192); CREATINE KINASE MB < 1.0 ng/mL (0-4.0); MAGNESIUM 1.7 mg/dL (1.7-2.9); TOTAL PROTEIN 6.7 g/dL (6.4-8.2)
[2017-03-06] MEDS ORDERED: LASIX IVP ONE ×2 (03:24→03:32)
[2017-03-06 03:25] LABS: B-TYPE NATRIURETIC PEPTIDE 50.6 pg/mL (0-79)
[2017-03-06] MEDS ORDERED: K-LYTE EFFERVESCENT PO STA (03:25)
[2017-03-06] MEDS ORDERED: LEVAQUIN PREMIX IV 500 MG 500 MG/100 ML BAG IV ONE ×2 (03:28→03:32)
[2017-03-06 03:31] LABS: APPEARANCE,URINE CLEAR (CLEAR); BACTERIA,URINE NEGATIVE /HPF (NEGATIVE); BILIRUBIN,URINE NEGATIVE (NEGATIVE); BLOOD/HEMOGLOBIN,URINE NEGATIVE (NEGATIVE); COLOR,URINE YELLOW (YELLOW); GLUCOSE, URINE NEGATIVE (NEGATIVE); KETONES,URINE NEGATIVE (NEGATIVE); LEUKOCYTE ESTERASE ,URINE 1+ (NEGATIVE); NITRITES,URINE NEGATIVE (NEGATIVE); PROTEIN,URINE NEGATIVE (NEGATIVE); RBC,URINE 0-3 /HPF (NEGATIVE); SQUAMOUS EPITHELIAL CELL,UR RARE /HPF (NEGATIVE); UROBILINOGEN,URINE NORMAL (NORMAL)
[2017-03-06] MEDS ORDERED: K-LYTE EFFERVESCENT ONE (03:32)
[2017-03-06 03:41] LABS: D DIMER 831 ng/mL (0-400)
[2017-03-06] MEDS ORDERED: ZOFRAN INJ 4 MG VIAL ONE (04:24)
[2017-03-06] MEDS ORDERED: ZOFRAN INJ 4 MG VIAL IVP ONE (04:27)
[2017-03-06] MEDS ORDERED: NS 100 ML IV 100 ML IV ONE (04:34)
--- NOTE | 2017-03-06 05:18 | CT ---
EXAM: CTA CHEST WITH CONTRAST INDICATION: Hypoxia, shortness of breath COMPARISION: No priors for comparison TECHNIQUE: Spiral CT of the chest was performed with contrast. Thin reconstructions in the axial and para-landry l planes were obtained. 3D MIP imaging sequences were obtained using the axial data. The patient rece ived intravenous contrast without adverse reaction. FINDINGS: Advanced pulmonary fibrosis is seen throughout both lungs. Areas of architectural distortion, ground- glass attenuation, bronchiectasis, and honeycombing is seen bilaterally. Atherosclerotic changes are seen in the aorta. There is aneurysmal dilatation of the ascending thoracic aorta which measures 4.3 cm in diameter. No pulmonary embolism. The heart is enlarged. Coronary artery calcifications are pres ent. No mediastinal or hilar mass or adenopathy. IMPRESSION: Advanced pulmonary fibrosis. There is cardiomegaly. Atherosclerotic changes are present and there is aneurysmal dilatation of the ascending thoracic aorta. No pulmonary embolism. Reported By:
[2017-03-06] MEDS ORDERED: ZOFRAN INJ 4 MG VIAL IVP PRN (05:55)
[2017-03-06] MEDS: NS 1000 ML 1,000 ML IV SCH (06:01)
[2017-03-06] MEDS: MERREM PREMIX IV 500 MG 500 MG/50 ML BAG IV SCH ×3 (06:54→20:59)
[2017-03-06] MEDS: DUONEB 0.5 MG/3 MG NEB SCH ×4 (09:24→21:29)
[2017-03-06] MEDS: LEVAQUIN PREMIX IV 500 MG 500 MG/100 ML BAG IV SCH (09:29)
[2017-03-06] MEDS: LASIX IVP SCH (16:36)
[2017-03-06] MEDS ORDERED: MILK OF MAGNESIA PO PRN (17:27)
[2017-03-06] MEDS ORDERED: COLACE CAP 100 MG PO PRN (17:27)
[2017-03-06] MEDS ORDERED: HYDROCODONE ACETAMINOPHEN PO PRN (19:16)
[2017-03-06] MEDS ORDERED: DUONEB 0.5 MG/3 MG NEB PRN ×2 (19:16→19:20)
[2017-03-06] MEDS ORDERED: NORCO 5/325 MG TAB PO PRN (19:23)
[2017-03-06] MEDS ORDERED: ASCORBIC ACID PO SCH (19:30)
[2017-03-06] MEDS: ZESTRIL TAB 10 MG PO SCH ×2 (20:57→23:04)
[2017-03-06] MEDS: NYSTATIN CREAM TOP SCH (20:57)
[2017-03-06] MEDS: MIRALAX POWDER (1 DOSE 17GM) PO SCH (20:57)
[2017-03-06] MEDS: PriLOSEC PO SCH (20:57)
[2017-03-06] MEDS: LOVAZA PO SCH (20:57)
[2017-03-06] MEDS: NORVASC TAB 5 MG PO SCH (20:57)
[2017-03-06] MEDS ORDERED: PATIENT'S HOME MEDICATION (Omega-3s/Dha/Epa/Fish Oil [Fish Oil 1,200 Mg Softgel] 1 TAB) PO SCH (21:00)
[2017-03-06] MEDS: ATIVAN TAB 1 MG PO PRN (21:12)
[2017-03-07] MEDS: LASIX IVP SCH ×3 (00:08→21:26)
[2017-03-07] MEDS: DUONEB 0.5 MG/3 MG NEB SCH ×6 (01:46→20:51)
[2017-03-07] MEDS: NS 1000 ML 1,000 ML IV SCH (05:47)
[2017-03-07] MEDS: MERREM PREMIX IV 500 MG 500 MG/50 ML BAG IV SCH ×3 (05:48→21:26)
[2017-03-07 06:06] LABS: BLOOD UREA NITROGEN 14 mg/dL (7-18); CALCIUM 8.5 mg/dL (8.5-10.1); CARBON DIOXIDE 36.6 mmol/L (21-32); CHLORIDE 102 mmol/L (98-107); CREATININE 0.77 mg/dL (0.55-1.02); SODIUM 142 mmol/L (136-145); eGFR BLACK RACES > 60 (>60); eGFR NON BLACK RACES > 60 (>60)
[2017-03-07 06:09] LABS: BASOPHILS % (AUTO) 0.6 % (0.2-1.0); EOSINOPHILS # (AUTO) 0.1 x10^3/uL (0.0-0.2); EOSINOPHILS % (AUTO) 2.8 % (0.9-2.9); HEMATOCRIT 36.1 % (36.0-47.0); HEMOGLOBIN 12.5 g/dL (12.0-16.0); LYMPHOCYTES # (AUTO) 0.7 X10^3/uL (1.3-2.9); LYMPHOCYTES % (AUTO) 14.1 % (21.0-51.0); MEAN CORPUSCULAR HEMOGLOBIN 31.4 pg (27.0-34.0); MEAN CORPUSCULAR HGB CONC 34.5 g/dL (33.0-35.0); MEAN CORPUSCULAR VOLUME 91.3 fL (80.0-100.0); MEAN PLATELET VOLUME 8.5 fL (7.4-11.0); MONOCYTES # (AUTO) 0.7 x10^3/uL (0.3-0.8); MONOCYTES % (AUTO) 15.5 % (0.0-13.0); NEUTROPHILS # (AUTO) 3.2 x10^3/uL (2.2-4.8); PLATELET COUNT 189 X10^3/uL (150.0-450.0); RED BLOOD COUNT 3.96 X10^6/uL (3.5-5.4); WHITE BLOOD COUNT 4.7 X10^3/uL (3.6-10.0)
[2017-03-07] MEDS ORDERED: PATIENT'S HOME MEDICATION (Multivit-Min/Fa/Lycopen/Lutein [Centrum Silver Tablet] 1 TAB) PO SCH (09:00)
[2017-03-07] MEDS ORDERED: LEXAPRO ONE (09:27)
[2017-03-07] MEDS: LEVAQUIN PREMIX IV 500 MG 500 MG/100 ML BAG IV SCH (09:55)
[2017-03-07] MEDS: NORVASC TAB 5 MG PO SCH ×2 (09:56→21:28)
[2017-03-07] MEDS: LOVAZA PO SCH ×2 (09:56→21:26)
[2017-03-07] MEDS: MOBIC TAB 15 MG PO SCH (09:56)
[2017-03-07] MEDS: VITAMIN C PO SCH (09:56)
[2017-03-07] MEDS: LEXAPRO PO SCH (09:56)
[2017-03-07] MEDS: SINGULAIR TAB 10 MG PO SCH (09:56)
[2017-03-07] MEDS: PriLOSEC PO SCH (09:56)
[2017-03-07] MEDS: TAB-A-VITE PO SCH (09:56)
[2017-03-07] MEDS: MIRALAX POWDER (1 DOSE 17GM) PO SCH ×2 (09:57→21:26)
[2017-03-07] MEDS: ZESTRIL TAB 10 MG PO SCH ×2 (09:57→21:45)
[2017-03-07] MEDS: NYSTATIN CREAM TOP SCH (09:58)
[2017-03-07] MEDS: ATIVAN TAB 1 MG PO PRN (23:57)
[2017-03-08] MEDS: DUONEB 0.5 MG/3 MG NEB SCH ×5 (00:51→16:21)
[2017-03-08 05:12] LABS: BASOPHILS % (AUTO) 0.7 % (0.2-1.0); BLOOD UREA NITROGEN 18 mg/dL (7-18); CALCIUM 8.6 mg/dL (8.5-10.1); CHLORIDE 98 mmol/L (98-107); COR NA(FOR HYPERGLY) 139 mmol/L (136-145); CREATININE 0.76 mg/dL (0.55-1.02); EOSINOPHILS # (AUTO) 0.3 x10^3/uL (0.0-0.2); HEMATOCRIT 38.5 % (36.0-47.0); HEMOGLOBIN 13.3 g/dL (12.0-16.0); LYMPHOCYTES # (AUTO) 0.6 X10^3/uL (1.3-2.9); LYMPHOCYTES % (AUTO) 9.2 % (21.0-51.0); MEAN CORPUSCULAR HEMOGLOBIN 31.6 pg (27.0-34.0); MEAN CORPUSCULAR HGB CONC 34.5 g/dL (33.0-35.0); MEAN CORPUSCULAR VOLUME 91.8 fL (80.0-100.0); MEAN PLATELET VOLUME 8.9 fL (7.4-11.0); MONOCYTES # (AUTO) 0.8 x10^3/uL (0.3-0.8); MONOCYTES % (AUTO) 11.5 % (0.0-13.0); NEUTROPHILS # (AUTO) 4.9 x10^3/uL (2.2-4.8); NEUTROPHILS % (AUTO) 74.6 % (42.0-75.0); PLATELET COUNT 217 X10^3/uL (150.0-450.0); RED BLOOD COUNT 4.19 X10^6/uL (3.5-5.4); RED CELL DISTRIBUTION WIDTH 13.7 % (11.6-16.5); SODIUM 138 mmol/L (136-145); WHITE BLOOD COUNT 6.6 X10^3/uL (3.6-10.0); eGFR BLACK RACES > 60 (>60); eGFR NON BLACK RACES > 60 (>60)
[2017-03-08] MEDS: MERREM PREMIX IV 500 MG 500 MG/50 ML BAG IV SCH ×2 (05:36→15:00)
[2017-03-08] MEDS: NS 1000 ML 1,000 ML IV SCH (05:36)
--- NOTE | 2017-03-08 08:40 | RAD ---
HISTORY: History is CHF, shortness of breath Study: Single view chest Comparison: 03/06/[address] Findings: Diffuse interstitial fibrotic changes are again seen as well as background emphysematous changes. The lungs are clear without consolidation, effusion or pneumothorax. Stable mild cardiomegaly. There is enlargement of the aorta as seen on recent CT. There are chronic degenerative changes of the bony th orax. IMPRESSION: 1. Emphysematous and interstitial fibrotic changes in the lungs. No new infiltrate. 2. Stable enlargement of the aorta. Reported By:
[2017-03-08] MEDS ORDERED: LEXAPRO ONE (09:32)
[2017-03-08] MEDS: LEXAPRO PO SCH (09:52)
[2017-03-08] MEDS: PriLOSEC PO SCH (09:53)
[2017-03-08] MEDS: LASIX IVP SCH (09:53)
[2017-03-08] MEDS: TAB-A-VITE PO SCH (09:53)
[2017-03-08] MEDS: MIRALAX POWDER (1 DOSE 17GM) PO SCH (09:53)
[2017-03-08] MEDS: VITAMIN C PO SCH (09:53)
[2017-03-08] MEDS: MOBIC TAB 15 MG PO SCH (09:53)
[2017-03-08] MEDS: SINGULAIR TAB 10 MG PO SCH (09:53)
[2017-03-08] MEDS: LOVAZA PO SCH (09:53)
[2017-03-08] MEDS: NORVASC TAB 5 MG PO SCH (09:53)
[2017-03-08] MEDS: NYSTATIN CREAM TOP SCH (09:54)
[2017-03-08] MEDS: LEVAQUIN PREMIX IV 500 MG 500 MG/100 ML BAG IV SCH (09:54)
[2017-03-08] MEDS: ZESTRIL TAB 10 MG PO SCH (15:12)
[2017-03-08 17:21] VITALS: BP 122/72
== END 2017-03-08 19:15 | disposition home or self-care (01) | DRG 204 ==
LOC: ER 02:08 → UNDOADMOB 05:50 → OBSVTOIN 05:50 → MED/SURG 05:50
PROVIDERS: ADMIT Internal Medicine; ATTEND Internal Medicine
DX: R06.00 Dyspnea, unspecified (principal); I50.9 Heart failure, unspecified; R07.89 Other chest pain; R10.13 Epigastric pain; R10.84 Generalized abdominal pain; R51 Headache; J84.10 Pulmonary fibrosis, unspecified; R06.02 Shortness of breath; R09.02 Hypoxemia; J47.9 Bronchiectasis, uncomplicated; I71.2 Thoracic aortic aneurysm, without rupture; E87.6 Hypokalemia; I25.10 Atherosclerotic heart disease of native coronary artery without angina pectoris
CPT/HCPCS: 36415; 71010; 71020; 71275; 80048; 80053; 81001; 82550; 82553; 83735; 83880; 84484; 85025; 85378; 85610; 85730; 86677; 87040; 87205; 93005; 94640; 94760; 96374; 96375; 99221; 99231; 99284; A4216; A4222; J1940; J1956; J2405; J7620

== ENCOUNTER 2017-09-21 20:49 | Emergency (ER) | payer OTHER, MEDICARE ==
[2017-09-21 20:54] VITALS: BP 156/92; BMI 23.5
[2017-09-21] MEDS ORDERED: ZOFRAN TAB 4 MG PO ONE (21:19)
[2017-09-21] MEDS ORDERED: ZOFRAN TAB 4 MG ONE (21:24)
--- NOTE | 2017-09-21 22:20 | RAD ---
Abdomen, one view Indication: Constipated Comparison: None Findings: There is large stool burden throughout the colon as well as rectum. The visualized bowel ga s pattern is otherwise nonobstructive. No free air or pneumatosis is identified. No pathologic calcif ications are seen. Imaged lung bases are clear. Degenerative changes throughout the spine noted. Impression: Large stool burden throughout the colon, compatible with constipation. There is also large amount of fecal material within the rectum. Correlate clinically for fecal impaction. Reported By:
--- NOTE | 2017-09-21 22:44 | DR.GENAD ---
HPI - PCP Primary Care Physician: AP - Complaint/Symptoms Chief Complaint Doctors Comments: Patient presents with complaint of constipation. She has a history of constipation. She is unable to have a BM w/ o enemas. Chief Complaint:: CONSTIPATED O/S TODAY. LAST NORMAL BOWEL MOVEMENT UNSURE. 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, Joint Replacement Past Surgical History Comment: HEMORRHOID SURGERY - Family History History of Family Medical Conditions: Yes Family Medical History: Diabetes Mellitus, Cancer, [place], Coronary Artery Disease, Sudden Cardiac - Social History Does patient currently use any type of tobacco product: No Have you used tobacco products in the last 12 months: No Type of Tobacco Use: None Does any household member use tobacco: No Alcohol Use: None Do you use any recreational Drugs:: No Lives Where: Home - infectious screening Have you traveled outside the country in the last 6 months?: No Isolation: Standard ROS - Review of Systems Eyes: No Symptoms Reported ENTM: No Symptoms Reported Respiratoy: No Symptoms Reported Cardiovascular: No Symptoms Reported Gastrointestinal/Abdominal: No Symptoms Reported, Abdominal Pain Neurological: No Symptoms Reported Musculoskeletal: No Symptoms Reported Integumentary: No Symptoms Reported Hematologic/Lymphatic: No Symptoms Reported Endocrine: No Symptoms Reported Psychiatric: No Symptoms Reported All Other Systems: Reviewed and Negative PE - Vital Signs Vitals: Temperature 97.0 F Pulse Rate 100 Respiratory Rate 20 Blood Pressure [Right Arm] 122/72 Blood Pressure [Left Arm] 119/60 Blood Pressure 156/92 O2 Sat by Pulse Oximetry 93 - General Limitations: No Limitations General Appearance: Alert - Head Head Exam: Normal Inspection, Atraumatic - Eyes Eye exam: Normal Appearance, PERRL, EOMI - ENT ENT Exam: Normal Exam External Ear Exam: Normal External Inspection TM/Canal Exam: Bilateral Normal Nose Exam: Normal Nose Exam, Sinus Tenderness Mouth Exam: Normal Inspection Throat Exam: Normal Inspection - Neck Neck Exam: Normal Inspection, Full ROM - Chest Chest Inspection: Normal Inspection, Symmetric Chest Wall Rise - Respiratory Respiratory Exam: Normal Lung Sounds Bilat Respiratory Exam: Bilateral Clear to Auscultation - Cardiovascular Cardiovascular Exam: Regular Rate, Normal Rhythm - Abdominal Exam Abdominal Exam: Normal Inspection, Normal Bowel Sounds Abdominal Tenderness: Diffuse - Extremities Extremities Exam: Normal Inspection, Full ROM - Back Back Exam: Normal Inspection, Full ROM, Tenderness - Neurologic Neurological Exam: Alert, Oriented X3, CN II-XII Intact - Psychiatric Psychiatric Exam: Normal Affect, Normal Mood - Skin Skin Exam: Warm, Dry, Intact ROR - XRAY XRAY Interpreted by: Radiologist (KUB: There is large stool burden throughout the colon as well as rectum. The visualized bowel corby pattern is otherwise nonobstructive. No free air or penumatosis is identified. No pathologic calcifications are seen. Imaged lung bases are clear. Degenerative changes throughout the spine noted.) - Diagnosis Discharge Problem: Fecal impaction - Discharge Plan Condition: Stable - Follow ups/Referrals Follow ups/Referrals: Matthew Nelson [Primary Care Provider] - 3 days - Instructions
== END 2017-09-21 23:40 | disposition home or self-care (01) ==
LOC: ER 20:57
DX: K56.41 Fecal impaction (principal)
CPT/HCPCS: 74018; 99282; S0181

== ENCOUNTER 2017-09-23 09:37 | Emergency (ER) | payer OTHER, MEDICARE ==
--- NOTE | 2017-09-23 10:19 | DR.GENAD ---
HPI - PCP Primary Care Physician: AP - Complaint/Symptoms Chief Complaint:: LOW BLOOD PRESSURE Self Treatment fo Chief Complaint: PT WAS SEEN IN ER 09/21/17 FOR FECAL IMPACTION. PT HAD AN ENEMA WHILE HERE AT HOSPITAL AND PTS DAUGHTER STATES SHE STILL HAS SOME DIARHHEA AND BOTTOM IS RAW, BUT STOOL IS TRYING TO FORM SOME NOW. 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, Joint Replacement - Family History History of Family Medical Conditions: Yes Family Medical History: Diabetes Mellitus, Cancer, [place], Coronary Artery Disease, Sudden Cardiac - Social History Does patient currently use any type of tobacco product: No Have you used tobacco products in the last 12 months: No Type of Tobacco Use: None Does any household member use tobacco: No Alcohol Use: None Do you use any recreational Drugs:: No Lives With: Family Lives Where: Home - infectious screening In the last 2 months have you had wt loss of >10#?: NO Have you traveled outside the country in the last 6 months?: No Isolation: Standard ROS - Review of Systems Eyes: No Symptoms Reported ENTM: No Symptoms Reported Respiratoy: No Symptoms Reported Cardiovascular: No Symptoms Reported Gastrointestinal/Abdominal: No Symptoms Reported Genitourinary: No Symptoms Reported Neurological: No Symptoms Reported Musculoskeletal: No Symptoms Reported Integumentary: No Symptoms Reported Hematologic/Lymphatic: No Symptoms Reported Endocrine: No Symptoms Reported Psychiatric: No Symptoms Reported All Other Systems: Reviewed and Negative PE - Vital Signs Vitals: Temperature 99.4 F Pulse Rate [Right Brachial] 83 Pulse Rate 82 Respiratory Rate 16 Blood Pressure [Right Arm] 101/58 Blood Pressure [Left Arm] 119/60 Blood Pressure 90/41 O2 Sat by Pulse Oximetry 95 - General Limitations: No Limitations General Appearance: Alert, In No Apparent Distress - Head Head Exam: Normal Inspection, Atraumatic - Eyes Eye exam: Normal Appearance, PERRL, EOMI - ENT ENT Exam: Normal Exam External Ear Exam: Normal External Inspection TM/Canal Exam: Bilateral Normal Nose Exam: Normal Nose Exam Mouth Exam: Normal Inspection Throat Exam: Normal Inspection - Neck Neck Exam: Normal Inspection - Chest Chest Inspection: Normal Inspection - Respiratory Respiratory Exam: Normal Lung Sounds Bilat Respiratory Exam: Bilateral Clear to Auscultation - Cardiovascular Cardiovascular Exam: Regular Rate, Normal Rhythm - Abdominal Exam Abdominal Exam: Normal Inspection Abdominal Tenderness: negative: RUQ, RLQ, LUQ, LLQ, Epigastrium, Suprapubic, Diffuse, Mild, Moderate, Severe, Other - Back Back Exam: Normal Inspection, Full ROM - Neurologic Neurological Exam: Alert, Oriented X3 - Psychiatric Psychiatric Exam: Normal Affect - Skin Skin Exam: Warm, Dry Course - Reevaluation 1st: Improved ROR - Labs Reviewed Result Diagrams: 09/23/17 10:09/23/17 10: Laboratory: WBC 9.1 X10^3/uL (3.6-10.0) 09/23/17 10: RBC 3.80 X10^6/uL (3.5-5.4) 09/23/17 10: Hgb 12.4 g/dL (12.0-16.0) 09/23/17 10: Hct 36.8 % (36.0-47.0) 09/23/17 10: MCV 96.8 fL (80.0-100.0) 09/23/17 10: MCH 32.6 pg (27.0-34.0) 09/23/17 10: MCHC 33.6 g/dL (33.0-35.0) 09/23/17 10: RDW 13.8 % (11.6-16.5) 09/23/17 10: Plt Count 127 X10^3/uL (150.0-450.0) L 09/23/17 10: MPV 8.6 fL (7.4-11.0) 09/23/17 10: Neut % (Auto) 83.8 % (42.0-75.0) H 09/23/17 10: Lymph % (Auto) 7.3 % (21.0-51.0) L 09/23/17 10: [place] % (Auto) 7.9 % (0.0-13.0) 09/23/17 10: Eos % (Auto) 0.6 % (0.9-2.9) L 09/23/17 10: Baso % (Auto) 0.4 % (0.2-1.0) 09/23/17 10:29 Neut # (Auto) 7.7 x10^3/uL (2.2-4.8) H 09/23/17 10:29 Lymph # (Auto) 0.7 X10^3/uL (1.3-2.9) L 09/23/17 10:29 [place] # (Auto) 0.7 x10^3/uL (0.3-0.8) 09/23/17 10:29 Eos # (Auto) 0.1 x10^3/uL (0.0-0.2) 09/23/17 10:29 Baso # (Auto) 0.0 X10^3/uL (0.0-0.1) 09/23/17 10:29 Absolute Nucleated RBC 0.0 /100WBC 09/23/17 10:29 Sodium 140 mmol/L (136-145) 09/23/17 10:29 Corrected Sodium 141 mmol/L (136-145) 09/23/17 10:29 Potassium 3.7 mmol/L (3.5-5.1) 09/23/17 10:29 Chloride 103 mmol/L (98-107) 09/23/17 10:29 Carbon Dioxide 29.7 mmol/L (21-32) 09/23/17 10:29 BUN 42 mg/dL (7-18) H 09/23/17 10:29 Creatinine 1.21 mg/dL (0.55-1.02) H 09/23/17 10:29 Est GFR (MDRD) Af Amer 54 (>60) L 09/23/17 10:29 Est GFR (MDRD) Non-Af 45 (>60) L 09/23/17 10:29 Glucose 125 mg/dL (65-99) H 09/23/17 10:29 Calcium 8.1 mg/dL (8.5-10.1) L 09/23/17 10:29 Corrected Calcium 9.0 mg/dL (8.5-10.1) 09/23/17 10:29 Total Bilirubin 0.70 mg/dL (0.2-1.0) 09/23/17 10:29 AST 66 Units/L (15-37) H 09/23/17 10:29 ALT 99 Units/L (12-78) H 09/23/17 10:29 Alkaline Phosphatase 144 Units/L (46-116) H 09/23/17 10:29 Total Protein 6.3 g/dL (6.4-8.2) L 09/23/17 10:29 Albumin 2.9 g/dL (3.4-5.0) L 09/23/17 10:29 Globulin 3.4 g/dL (2.5-4.5) 09/23/17 10:29 Albumin/Globulin Ratio 0.9 Ratio (1.1-2.1) L 09/23/17 10:29 - Diagnosis Discharge Problem: Dehydration, mild - Discharge Plan Condition: Stable - Follow ups/Referrals Follow ups/Referrals: Matthew Nelson [Primary Care Provider] - 3 days - Instructions
[2017-09-23 10:23] VITALS: BP 101/58
[2017-09-23 10:31] VITALS: BMI 23.5
[2017-09-23] MEDS ORDERED: NS 1000 ML 1,000 ML IV ONE (10:35)
[2017-09-23 10:36] LABS: BASOPHILS % (AUTO) 0.4 % (0.2-1.0); EOSINOPHILS # (AUTO) 0.1 x10^3/uL (0.0-0.2); EOSINOPHILS % (AUTO) 0.6 % (0.9-2.9); HEMATOCRIT 36.8 % (36.0-47.0); HEMOGLOBIN 12.4 g/dL (12.0-16.0); LYMPHOCYTES # (AUTO) 0.7 X10^3/uL (1.3-2.9); LYMPHOCYTES % (AUTO) 7.3 % (21.0-51.0); MEAN CORPUSCULAR HEMOGLOBIN 32.6 pg (27.0-34.0); MEAN CORPUSCULAR HGB CONC 33.6 g/dL (33.0-35.0); MEAN CORPUSCULAR VOLUME 96.8 fL (80.0-100.0); MEAN PLATELET VOLUME 8.6 fL (7.4-11.0); MONOCYTES # (AUTO) 0.7 x10^3/uL (0.3-0.8); MONOCYTES % (AUTO) 7.9 % (0.0-13.0); NEUTROPHILS # (AUTO) 7.7 x10^3/uL (2.2-4.8); NEUTROPHILS % (AUTO) 83.8 % (42.0-75.0); PLATELET COUNT 127 X10^3/uL (150.0-450.0); RED CELL DISTRIBUTION WIDTH 13.8 % (11.6-16.5); WHITE BLOOD COUNT 9.1 X10^3/uL (3.6-10.0)
[2017-09-23] MEDS ORDERED: NS 1000 ML 1,000 ML ONE (10:37)
[2017-09-23 10:50] LABS: ALBUMIN 2.9 g/dL (3.4-5.0); CALCIUM 8.1 mg/dL (8.5-10.1); CARBON DIOXIDE 29.7 mmol/L (21-32); CREATININE 1.21 mg/dL (0.55-1.02); TOTAL PROTEIN 6.3 g/dL (6.4-8.2)
--- NOTE | 2017-09-23 11:16 | RAD ---
HISTORY: Follow-up constipation Study: KUB Comparison: 09/21/2017 Findings: The abdominal gas pattern is nonspecific and nonobstructive. There is a significant reduction of stoo l present when compared with the prior examination. No abnormal masses or abnormal calcifications are identified. Severe degenerative changes are present in the lumbar spine. IMPRESSION: Significant decrease in stool burden when compared with the prior examination Reported By:
== END 2017-09-23 13:12 | disposition home or self-care (01) ==
LOC: ER 09:58
DX: E86.0 Dehydration (principal)
CPT/HCPCS: 36415; 74018; 80053; 85025; 96365; 96367; 99283; A4222

== ENCOUNTER 2017-10-08 12:41 | Emergency (ER) | payer OTHER, MEDICARE ==
[2017-10-08 12:46] VITALS: BP 138/75; BMI 23.3
--- NOTE | 2017-10-08 13:09 | DR.GENAD ---
HPI - PCP Primary Care Physician: aristeo - Complaint/Symptoms Chief Complaint Doctors Comments: Patient record of blood recordings are normal according to standards based on recordings with one or two outliers Chief Complaint:: " I texted doctor aristeo and he said being her to the er and check her kidney funtion , because her blood pressure has been low" - Source History Provided: Patient - Mode of Arrival Mode of Arrival: Wheelchair - Timing Onset of Chief Complaint: 10/07/17 PMH - PMH Past Medical History: Yes Past Medical History: Anxiety, Arthritis, COPD, Dementia, Depression, Hypertension Past Surgical History: Yes Surgical History: 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, 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, Hysterectomy, Joint Replacement - Family History History of Family Medical Conditions: Yes Family Medical History: Diabetes Mellitus, Cancer, CT, Coronary Artery Disease, Sudden Cardiac - Social History Does patient currently use any type of tobacco product: No Have you used tobacco products in the last 12 months: No Type of Tobacco Use: None Does any household member use tobacco: No Do you use any recreational Drugs:: No Lives With: Family Lives Where: Home - infectious screening In the last 2 months have you had wt loss of >10#?: NO Have you had fever, night sweats or hemotysis?: No Have you traveled outside the country in the last 6 months?: No Isolation: Standard ROS - Review of Systems Eyes: No Symptoms Reported ENTM: No Symptoms Reported Respiratoy: No Symptoms Reported Cardiovascular: No Symptoms Reported Gastrointestinal/Abdominal: No Symptoms Reported Genitourinary: No Symptoms Reported Neurological: No Symptoms Reported Musculoskeletal: No Symptoms Reported Integumentary: No Symptoms Reported Hematologic/Lymphatic: No Symptoms Reported Endocrine: No Symptoms Reported Psychiatric: No Symptoms Reported All Other Systems: Reviewed and Negative PE - Vital Signs Vitals: Temperature 98.5 F Pulse Rate 72 Respiratory Rate 18 Blood Pressure [Right Arm] 101/58 Blood Pressure [Left Arm] 119/60 Blood Pressure 138/75 O2 Sat by Pulse Oximetry 95 - General Limitations: No Limitations General Appearance: Alert, In No Apparent Distress - Head Head Exam: Normal Inspection, Atraumatic - Eyes Eye exam: Normal Appearance, PERRL, EOMI - ENT ENT Exam: Normal Exam, Normal Oropharynx External Ear Exam: Normal External Inspection TM/Canal Exam: Bilateral Normal Nose Exam: Normal Nose Exam Mouth Exam: Normal Inspection Throat Exam: Normal Inspection - Neck Neck Exam: Normal Inspection - Chest Chest Inspection: Normal Inspection - Respiratory Respiratory Exam: Normal Lung Sounds Bilat Respiratory Exam: Bilateral Clear to Auscultation - Cardiovascular Cardiovascular Exam: Regular Rate, Normal Rhythm - Abdominal Exam Abdominal Exam: Normal Inspection, Normal Bowel Sounds Abdominal Tenderness: negative: RUQ, RLQ, LUQ, LLQ, Epigastrium, Suprapubic, Diffuse, Mild, Moderate, Severe, Other - Extremities Extremities Exam: Normal Inspection - Back Back Exam: Normal Inspection, Full ROM - Neurologic Neurological Exam: Alert, Oriented X3, CN II-XII Intact - Psychiatric Psychiatric Exam: Normal Affect - Skin Skin Exam: Warm, Dry, Intact ROR - Labs Reviewed Result Diagrams: 10/08/17 13:35 10/08/17 13:35 Laboratory: WBC 7.9 X10^3/uL (3.6-10.0) 10/08/17 13:35 RBC 3.79 X10^6/uL (3.5-5.4) 10/08/17 13:35 Hgb 12.5 g/dL (12.0-16.0) 10/08/17 13:35 Hct 36.3 % (36.0-47.0) 10/08/17 13:35 MCV 95.9 fL (80.0-100.0) 10/08/17 13:35 MCH 33.1 pg (27.0-34.0) 10/08/17 13:35 MCHC 34.5 g/dL (33.0-35.0) 10/08/17 13:35 RDW 13.7 % (11.6-16.5) 10/08/17 13:35 Plt Count 182 X10^3/uL (150.0-450.0) 10/08/17 13:35 MPV 8.6 fL (7.4-11.0) 10/08/17 13:35 Neut % (Auto) 78.2 % (42.0-75.0) H 10/08/17 13:35 Lymph % (Auto) 10.4 % (21.0-51.0) L 10/08/17 13:35 [place] % (Auto) 10.2 % (0.0-13.0) 10/08/17 13:35 Eos % (Auto) 0.6 % (0.9-2.9) L 10/08/17 13:35 Baso % (Auto) 0.6 % (0.2-1.0) 10/08/17 13:35 Neut # (Auto) 6.2 x10^3/uL (2.2-4.8) H 10/08/17 13:35 Lymph # (Auto) 0.8 X10^3/uL (1.3-2.9) L 10/08/17 13:35 [place] # (Auto) 0.8 x10^3/uL (0.3-0.8) 10/08/17 13:35 Eos # (Auto) 0.1 x10^3/uL (0.0-0.2) 10/08/17 13:35 Baso # (Auto) 0.0 X10^3/uL (0.0-0.1) 10/08/17 13:35 Absolute Nucleated RBC 0.0 /100WBC 10/08/17 13:35 Sodium 141 mmol/L (136-145) 10/08/17 13:35 Corrected Sodium TNP 10/08/17 13:35 Potassium 4.3 mmol/L (3.5-5.1) 10/08/17 13:35 Chloride 104 mmol/L (98-107) 10/08/17 13:35 Carbon Dioxide 33.7 mmol/L (21-32) H 10/08/17 13:35 BUN 17 mg/dL (7-18) 10/08/17 13:35 Creatinine 0.50 mg/dL (0.55-1.02) L 10/08/17 13:35 Est GFR (MDRD) Af Amer > 60 (>60) 10/08/17 13:35 Est GFR (MDRD) Non-Af > 60 (>60) 10/08/17 13:35 Glucose 100 mg/dL (65-99) H 10/08/17 13:35 Calcium 9.0 mg/dL (8.5-10.1) 10/08/17 13:35 - Diagnosis Discharge Problem: Normal exam - Discharge Plan Condition: Stable - Follow ups/Referrals Follow ups/Referrals: Matthew Nelson [Primary Care Provider] - 3 days - Instructions
[2017-10-08 13:50] LABS: BASOPHILS % (AUTO) 0.6 % (0.2-1.0); EOSINOPHILS # (AUTO) 0.1 x10^3/uL (0.0-0.2); EOSINOPHILS % (AUTO) 0.6 % (0.9-2.9); HEMATOCRIT 36.3 % (36.0-47.0); HEMOGLOBIN 12.5 g/dL (12.0-16.0); LYMPHOCYTES # (AUTO) 0.8 X10^3/uL (1.3-2.9); LYMPHOCYTES % (AUTO) 10.4 % (21.0-51.0); MEAN CORPUSCULAR HEMOGLOBIN 33.1 pg (27.0-34.0); MEAN CORPUSCULAR HGB CONC 34.5 g/dL (33.0-35.0); MEAN CORPUSCULAR VOLUME 95.9 fL (80.0-100.0); MEAN PLATELET VOLUME 8.6 fL (7.4-11.0); MONOCYTES # (AUTO) 0.8 x10^3/uL (0.3-0.8); MONOCYTES % (AUTO) 10.2 % (0.0-13.0); NEUTROPHILS # (AUTO) 6.2 x10^3/uL (2.2-4.8); NEUTROPHILS % (AUTO) 78.2 % (42.0-75.0); PLATELET COUNT 182 X10^3/uL (150.0-450.0); RED BLOOD COUNT 3.79 X10^6/uL (3.5-5.4); RED CELL DISTRIBUTION WIDTH 13.7 % (11.6-16.5); WHITE BLOOD COUNT 7.9 X10^3/uL (3.6-10.0)
[2017-10-08 13:57] LABS: BLOOD UREA NITROGEN 17 mg/dL (7-18); CARBON DIOXIDE 33.7 mmol/L (21-32); CHLORIDE 104 mmol/L (98-107); SODIUM 141 mmol/L (136-145); eGFR BLACK RACES > 60 (>60); eGFR NON BLACK RACES > 60 (>60)
== END 2017-10-08 14:30 | disposition home or self-care (01) ==
LOC: ER 12:41
DX: I10 Essential (primary) hypertension (principal); Z00.00 Encounter for general adult medical examination without abnormal findings
CPT/HCPCS: 36415; 80048; 85025; 99282

== ENCOUNTER → 2017-11-24 | Outpatient (CLI) | payer OTHER, MEDICARE ==
--- NOTE | 2017-11-25 06:39 | RAD ---
HISTORY: Cellulitis left great toe Study: Left foot AP, lateral, oblique Comparison: None Findings: The bones are osteopenic. There is no evidence for acute fracture, lytic, or blastic lesion. No erosi ve arthritis or abnormal periosteal reaction is identified. There is arthritic change in the 1st MTP joint likely degenerative in origin, mild. IMPRESSION: Osteopenia Mild degenerative arthritic changes 1st MTP joint No plain film findings to suggest osteomyelitis Reported By:
== END ==
LOC: RAD 18:43
PROVIDERS: ATTEND Nurse Practitioner Family
DX: L03.032 Cellulitis of left toe (principal); M79.675 Pain in left toe(s); M85.80 Other specified disorders of bone density and structure, unspecified site
CPT/HCPCS: 73630

== ENCOUNTER → 2017-11-26 | Outpatient (CLI) | payer OTHER, MEDICARE ==
[2017-11-26 13:42] LABS: BASOPHILS % (AUTO) 0.5 % (0.2-1.0); EOSINOPHILS # (AUTO) 0.1 x10^3/uL (0.0-0.2); EOSINOPHILS % (AUTO) 1.1 % (0.9-2.9); HEMATOCRIT 38.7 % (36.0-47.0); HEMOGLOBIN 13.1 g/dL (12.0-16.0); LYMPHOCYTES # (AUTO) 0.9 X10^3/uL (1.3-2.9); LYMPHOCYTES % (AUTO) 15.9 % (21.0-51.0); MEAN CORPUSCULAR HEMOGLOBIN 33.1 pg (27.0-34.0); MEAN CORPUSCULAR HGB CONC 33.8 g/dL (33.0-35.0); MEAN CORPUSCULAR VOLUME 97.9 fL (80.0-100.0); MEAN PLATELET VOLUME 8.5 fL (7.4-11.0); MONOCYTES # (AUTO) 0.6 x10^3/uL (0.3-0.8); MONOCYTES % (AUTO) 10.7 % (0.0-13.0); NEUTROPHILS # (AUTO) 3.9 x10^3/uL (2.2-4.8); NEUTROPHILS % (AUTO) 71.8 % (42.0-75.0); PLATELET COUNT 168 X10^3/uL (150.0-450.0); RED BLOOD COUNT 3.95 X10^6/uL (3.5-5.4); RED CELL DISTRIBUTION WIDTH 15.5 % (11.6-16.5); WHITE BLOOD COUNT 5.5 X10^3/uL (3.6-10.0)
== END ==
LOC: LAB 13:29
PROVIDERS: ATTEND Nurse Practitioner Family
DX: L03.032 Cellulitis of left toe (principal); M79.675 Pain in left toe(s)
CPT/HCPCS: 36415; 84550; 85025

== ENCOUNTER 2018-03-22 12:30 | Inpatient (IN) ==
[2018-03-22 12:50] VITALS: BMI 25.6
--- NOTE | 2018-03-22 13:50 | DR.HEADACH ---
HPI Time Seen Time Seen by Provider: 03/22/18 13:48 Primary Care Physician Primary Care Physician: AP HPI Comment HPI Comment: HER KNESS AND HEAD ARE KILLING HER AND HAVE UPPER ABDOMINAL PAIN ALSO. NAUSEATED BUT NO VOMITING. NO DYSURIA BUT USINATING A LOT. NO FEVER. Complaint/Symptoms Chief Complaint Doctors Comments: AMS, INSOMNIA AND ABDOMINAL PAIN AND HEADACHE TIMES ONE DAY. DID NOT SLEEP LAST NIGHT. Chief Complaint:: PTS DAUGHTER STATES PT HAS BEEN UP ALL NIGHT LONG. PT STATES HER KNEES AND HEAD IS KILLING HER AND SHE JUST DOESN'T KNOW WHAT IS WRONG WITH HER. Pertinent History: Abdominal Pain, Altered Mental Status, Back Pain, Dizziness/ Weakness and Nausea/Vomitting Reviewed Nurses Notes Reviewed: Yes Source History Provided: Patient and Family Member Mode of Arrival Mode of Arrival: Ambulatory Timing Onset of Chief Complaint: 03/22/18 Duration Since Onset: Constant Duration: Days Location Headache Location: Generalized Severity Headache Severity: Moderate Context Headache Onset Circumstances: Spontaneous History of: Hypertension Prior Work Up: CT PMH PMH Past Medical History: Yes Past Medical History: Anxiety, Arthritis, COPD, Dementia, Depression, Dyslipidemia, GERD and Hypertension Past Surgical History: Yes Surgical History: 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, 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, Hysterectomy and Joint Replacement Family History History of Family Medical Conditions: Yes Family Medical History: Diabetes Mellitus, Cancer, [place], Coronary Artery Disease and Sudden Cardiac Social History Does patient currently use any type of tobacco product: No Have you used tobacco products in the last 12 months: No Type of Tobacco Use: None Does any household member use tobacco: No Alcohol Use: None Do you use any recreational Drugs:: No Lives With: Family Lives Where: Home infectious screening In the last 2 months have you had wt loss of >10#?: NO Have you had fever, night sweats or hemotysis?: No Have you traveled outside the country in the last 6 months?: No Isolation: Standard ROS Review of Systems Constitutional: Weakness and Fatigue; negative Chills and Fever Eyes: negative Eye Pain and Discharge ENTM: negative Nose Congestion and Throat Pain Respiratoy: Short of Breath (ON EXERSION) Cardiovascular: Chest Pain Gastrointestinal/Abdominal: Abdominal Pain and Nausea Genitourinary: Other (URINARY FREQUENCYY) Neurological: Headache and Weakness Musculoskeletal: Back Pain Integumentary: Dryness Endocrine: No Symptoms Reported Psychiatric: Other (INSOMNIA) All Other Systems: Reviewed and Negative Unable to Obtain Due To: Altered mental status PE Vital Signs Vitals: Temperature 98.0 F Pulse Rate [Left Brachial] 76 Pulse Rate 66 Respiratory Rate 20 Blood Pressure [Right Arm] 148/87 Blood Pressure [Left Arm] 139/109 Blood Pressure 163/94 O2 Sat by Pulse Oximetry 96 General Limitations: Altered Mental Status General Appearance: Alert and In No Apparent Distress Head Head Exam: Normal Inspection Eyes Eye exam: Normal Appearance, PERRL and EOMI; negative Scleral Icterus and Conjunctival Injection Eyelids: Normal Inspection: Bilateral Pupils: Regular, Round: Bilateral and Reactive: Bilateral Sclera/Conjunctival: Normal Inspection: Bilateral ENT ENT Exam: Normal Exam, Normal Oropharynx, Normal External Ear Exam and TM's Normal Bilaterally External Ear Exam: Normal External Inspection TM/Canal Exam: Bilateral: Normal Nose Exam: Normal Nose Exam Mouth Exam: Normal Inspection Teeth Exam: Normal Inspection Throat Exam: Normal Inspection Neck Neck Exam: Normal Inspection Chest Chest Inspection: Symmetric Chest Wall Rise Respiratory Respiratory Exam: Normal Lung Sounds Bilat Respiratory Exam: Bilateral: Rhonchi and Right: Rhonchi Cardiovascular Cardiovascular Exam: Regular Rate and Normal Rhythm Abdominal Exam Abdominal Exam: Normal Bowel Sounds and Soft Abdominal Tenderness: Diffuse and Moderate Extremities Extremities Exam: Normal Inspection Back Back Exam: Normal Inspection Neurologic Neurological Exam: Alert and CN II-XII Intact; negative Oriented X3 (OTIENTED TIMES 2) and Motor Sensory Deficit Psychiatric Psychiatric Exam: Normal Affect and Normal Mood Skin Skin Exam: Erythema MDM Additional Information Obtained Additional Information Obtained From: Family Differential Diagnosis Differential Diagnosis: Considerations may include:: CVA and Sinusitis Differential Diagnosis Comment: AMS, PNEUMONIA, [place]IGRA[place], [place], CVA. COURSE Treatment Treatment: SEE ORDERS. Education/Counseling Education/Counseling: Patient, Family and Education Educated On: Diagnosis ROR Labs Reviewed Laboratory Results Reviewed?: Yes Result Diagrams: 03/23/18 04:18 03/23/18 04:18 Laboratory: WBC 3.9 X10^3/uL (3.6-10.0) 03/23/18 04:18 RBC 3.92 X10^6/uL (3.5-5.4) 03/23/18 04:18 Hgb 13.3 g/dL (12.0-16.0) 03/23/18 04:18 Hct 37.8 % (36.0-47.0) 03/23/18 04:18 MCV 96.5 fL (80.0-100.0) 03/23/18 04:18 MCH 33.9 pg (27.0-34.0) 03/23/18 04:18 MCHC 35.2 g/dL (33.0-35.0) H 03/23/18 04:18 RDW 13.2 % (11.6-16.5) 03/23/18 04:18 Plt Count 132 X10^3/uL (150.0-450.0) L 03/23/18 04:18 MPV 9.1 fL (7.4-11.0) 03/23/18 04:18 Neut % (Auto) 63.3 % (42.0-75.0) 03/23/18 04:18 Lymph % (Auto) 21.2 % (21.0-51.0) 03/23/18 04:18 [place] % (Auto) 12.4 % (0.0-13.0) 03/23/18 04:18 Eos % (Auto) 2.4 % (0.9-2.9) 03/23/18 04:18 Baso % (Auto) 0.7 % (0.2-1.0) 03/23/18 04:18 Neut # (Auto) 2.5 x10^3/uL (2.2-4.8) 03/23/18 04:18 Lymph # (Auto) 0.8 X10^3/uL (1.3-2.9) L 03/23/18 04:18 [place] # (Auto) 0.5 x10^3/uL (0.3-0.8) 03/23/18 04:18 Eos # (Auto) 0.1 x10^3/uL (0.0-0.2) 03/23/18 04:18 Baso # (Auto) 0.0 X10^3/uL (0.0-0.1) 03/23/18 04:18 Absolute Nucleated RBC 0.0 /100WBC 03/23/18 04:18 Sodium 143 mmol/L (136-145) 03/23/18 04:18 Corrected Sodium TNP 03/23/18 04:18 Potassium 3.9 mmol/L (3.5-5.1) 03/23/18 04:18 Chloride 104 mmol/L (98-107) 03/23/18 04:18 Carbon Dioxide 33.4 mmol/L (21-32) H 03/23/18 04:18 BUN 11 mg/dL (7-18) 03/23/18 04:18 Creatinine 0.61 mg/dL (0.55-1.02) 03/23/18 04:18 Est GFR (MDRD) Af Amer > 60 (>60) 03/23/18 04:18 Est GFR (MDRD) Non-Af > 60 (>60) 03/23/18 04:18 Glucose 87 mg/dL (65-99) 03/23/18 04:18 Calcium 8.7 mg/dL (8.5-10.1) 03/23/18 04:18 Corrected Calcium TNP 03/23/18 04:18 Total Bilirubin 0.40 mg/dL (0.2-1.0) 03/23/18 04:18 AST 27 Units/L (15-37) 03/23/18 04:18 ALT 29 Units/L (12-78) 03/23/18 04:18 Alkaline Phosphatase 94 Units/L (46-116) 03/23/18 04:18 Creatine Kinase 57 Units/L (26-192) 03/22/18 14:25 CK-MB (CK-2) 1.2 ng/mL (0-4.0) 03/22/18 14:25 CK/CKMB % Calc 2.1 % (<4) 03/22/18 14:25 Troponin I < 0.02 ng/mL (0-1.5) 03/22/18 14:25 Total Protein 6.6 g/dL (6.4-8.2) 03/23/18 04:18 Albumin 3.4 g/dL (3.4-5.0) 03/23/18 04:18 Globulin 3.2 g/dL (2.5-4.5) 03/23/18 04:18 Albumin/Globulin Ratio 1.1 Ratio (1.1-2.1) 03/23/18 04:18 Specimen Type Clean catch urine 03/22/18 14:25 Urine Color Yellow (YELLOW) 03/22/18 14:25 Urine Appearance Clear (CLEAR) 03/22/18 14:25 Urine pH 8.0 (5.0 - 8.0) 03/22/18 14:25 Ur Specific [place] 1.015 (1.000-1.030) 03/22/18 14:25 Urine Protein Negative (NEGATIVE) 03/22/18 14:25 Urine Glucose (UA) Negative (NEGATIVE) 03/22/18 14:25 Urine Ketones Negative (NEGATIVE) 03/22/18 14:25 Urine Occult Blood Negative (NEGATIVE) 03/22/18 14:25 Urine Nitrite Negative (NEGATIVE) 03/22/18 14:25 Urine Bilirubin Negative (NEGATIVE) 03/22/18 14:25 Urine Urobilinogen Normal (NORMAL) 03/22/18 14:25 Ur Leukocyte Esterase Negative (NEGATIVE) 03/22/18 14:25 XRAY XRAY Interpreted by: Radiologist XRAY Findings: REPORT DISCUSS WITH PATIENT AND FAMILY. EKG Rate: 62 [place]: LAD Rhythm: NSR Block: None Hypertrophy: None ST: Normal Diagnosis Discharge Problem: Pneumonia
[2018-03-22 14:36] LABS: BASOPHILS % (AUTO) 0.8 % (0.2-1.0); EOSINOPHILS # (AUTO) 0.1 x10^3/uL (0.0-0.2); EOSINOPHILS % (AUTO) 1.5 % (0.9-2.9); HEMATOCRIT 40.3 % (36.0-47.0); HEMOGLOBIN 13.8 g/dL (12.0-16.0); LYMPHOCYTES # (AUTO) 0.8 X10^3/uL (1.3-2.9); LYMPHOCYTES % (AUTO) 15.3 % (21.0-51.0); MEAN CORPUSCULAR HEMOGLOBIN 33.5 pg (27.0-34.0); MEAN CORPUSCULAR HGB CONC 34.2 g/dL (33.0-35.0); MEAN PLATELET VOLUME 8.6 fL (7.4-11.0); MONOCYTES # (AUTO) 0.6 x10^3/uL (0.3-0.8); MONOCYTES % (AUTO) 11.7 % (0.0-13.0); NEUTROPHILS # (AUTO) 3.7 x10^3/uL (2.2-4.8); NEUTROPHILS % (AUTO) 70.7 % (42.0-75.0); PLATELET COUNT 139 X10^3/uL (150.0-450.0); RED BLOOD COUNT 4.11 X10^6/uL (3.5-5.4); RED CELL DISTRIBUTION WIDTH 13.1 % (11.6-16.5); WHITE BLOOD COUNT 5.2 X10^3/uL (3.6-10.0)
[2018-03-22 14:40] LABS: BILIRUBIN,URINE NEGATIVE (NEGATIVE); BLOOD/HEMOGLOBIN,URINE NEGATIVE (NEGATIVE); GLUCOSE, URINE NEGATIVE (NEGATIVE); KETONES,URINE NEGATIVE (NEGATIVE); LEUKOCYTE ESTERASE ,URINE NEGATIVE (NEGATIVE); NITRITES,URINE NEGATIVE (NEGATIVE); PROTEIN,URINE NEGATIVE (NEGATIVE); UROBILINOGEN,URINE NORMAL (NORMAL)
[2018-03-22 14:41] LABS: APPEARANCE,URINE CLEAR (CLEAR); COLOR,URINE YELLOW (YELLOW)
[2018-03-22 14:53] LABS: BLOOD UREA NITROGEN 17 mg/dL (7-18); CALCIUM 9.2 mg/dL (8.5-10.1); CARBON DIOXIDE 33.1 mmol/L (21-32); CHLORIDE 103 mmol/L (98-107); CREATININE 0.59 mg/dL (0.55-1.02); SODIUM 142 mmol/L (136-145); TROPONIN I < 0.02 ng/mL (0-1.5); eGFR NON BLACK RACES > 60 (>60)
[2018-03-22 14:57] LABS: ALANINE AMINOTRANSFERASE 30 Units/L (12-78); ALBUMIN 3.7 g/dL (3.4-5.0); ALKALINE PHOSPHATASE 98 Units/L (46-116); ASPARTATE AMINO TRANSFERASE 30 Units/L (15-37); CKMB % 2.1 % (<4); CREATINE KINASE 57 Units/L (26-192); CREATINE KINASE MB 1.2 ng/mL (0-4.0); TOTAL PROTEIN 6.9 g/dL (6.4-8.2)
--- NOTE | 2018-03-22 15:07 | RAD ---
HISTORY: Chest pain Study: Single-view of the chest Comparison: March 08, 2017 Findings: The patient is rotated. The cardiac silhouette is enlarged. The lung apices are obscured by overlyi ng soft tissues. Interstitial and fibrotic changes are again seen within the visualized lungs. Aort a is partially calcified and tortuous. IMPRESSION: Cardiomegaly. Emphysematous and fibrotic changes bilaterally. Reported By:
--- NOTE | 2018-03-22 15:37 | CT ---
Indication: Pain Exam: CT abdomen and pelvis without contrast Technique: Axial spiral images were obtained from lung bases through the pubic symphysis without cont rast. Automated dose control was utilized. Comparison: CT chest 03/06/2017 Findings: There is bibasilar interstitial linear densities with a focal subpleural opacity along the right lower lobe posteriorly which is slightly more prominent . The liver is normal size and density. The spleen measures 15 cm in length and is normal density. No focal lesion is seen. The gallbladder has been removed with clips in the gallbladder fossa. The pancreas and bile ducts are normal. The adr enals are normal. The kidneys are normal size with no hydronephrosis, renal stone, or mass. The urete rs are normal caliber . There is no adenopathy or ascites. The uterus has been removed with no adnexa l mass or free fluid . There is a metallic prosthesis in the left hip causing streak artifact in the pelvis . There are numerous diverticula throughout the sigmoid colon with no pericolonic inflammation . There is no adenopathy or ascites. There is extensive calcified plaque throughout the aorta and ass ociated branch vessels . The mesentery is unremarkable. Moderate degenerative changes are seen in the spine with no aggressive osseous lesion. Findings: Previous cholecystectomy which is unchanged with no acute intra-abdominal abnormality seen. No hydronephrosis or renal stones and no CT evidence of urinary obstruction. Status post hysterectomy with no pelvic mass. Moderate diverticulosis of the sigmoid colon with no pericolonic inflammation. 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 Bibasilar fibrosis and scarring with a questionable early infiltrate or progressive scarring along th e right lung base, recommend follow-up. Reported By:
[2018-03-22] MEDS ORDERED: ROCEPHIN VIAL 1 GRAM ONE (16:37)
[2018-03-22] MEDS ORDERED: NS 1/2 1000 ML IV 1,000 ML IV ONE (16:37)
[2018-03-22] MEDS ORDERED: LEVAQUIN PREMIX IV 500 MG 500 MG/100 ML BAG IV ONE ×2 (16:52→16:55)
[2018-03-22] MEDS ORDERED: SALINE 3% 15 ML NEB TX ONE (17:47)
[2018-03-22] MEDS: NS 1/2 1000 ML IV 1,000 ML IV SCH (20:00)
[2018-03-22] MEDS: DUONEB 0.5 MG/3 MG NEB SCH (20:53)
[2018-03-22] MEDS: ROBITUSSIN DM PO SCH (21:22)
[2018-03-23] MEDS: DUONEB 0.5 MG/3 MG NEB SCH ×6 (01:09→21:50)
[2018-03-23 05:25] LABS: BASOPHILS % (AUTO) 0.7 % (0.2-1.0); EOSINOPHILS # (AUTO) 0.1 x10^3/uL (0.0-0.2); EOSINOPHILS % (AUTO) 2.4 % (0.9-2.9); HEMATOCRIT 37.8 % (36.0-47.0); HEMOGLOBIN 13.3 g/dL (12.0-16.0); LYMPHOCYTES # (AUTO) 0.8 X10^3/uL (1.3-2.9); LYMPHOCYTES % (AUTO) 21.2 % (21.0-51.0); MEAN CORPUSCULAR HEMOGLOBIN 33.9 pg (27.0-34.0); MEAN CORPUSCULAR HGB CONC 35.2 g/dL (33.0-35.0); MEAN CORPUSCULAR VOLUME 96.5 fL (80.0-100.0); MEAN PLATELET VOLUME 9.1 fL (7.4-11.0); MONOCYTES # (AUTO) 0.5 x10^3/uL (0.3-0.8); MONOCYTES % (AUTO) 12.4 % (0.0-13.0); NEUTROPHILS # (AUTO) 2.5 x10^3/uL (2.2-4.8); NEUTROPHILS % (AUTO) 63.3 % (42.0-75.0); PLATELET COUNT 132 X10^3/uL (150.0-450.0); RED BLOOD COUNT 3.92 X10^6/uL (3.5-5.4); RED CELL DISTRIBUTION WIDTH 13.2 % (11.6-16.5); WHITE BLOOD COUNT 3.9 X10^3/uL (3.6-10.0)
[2018-03-23 05:41] LABS: ALANINE AMINOTRANSFERASE 29 Units/L (12-78); ALBUMIN 3.4 g/dL (3.4-5.0); ALKALINE PHOSPHATASE 94 Units/L (46-116); ASPARTATE AMINO TRANSFERASE 27 Units/L (15-37); BLOOD UREA NITROGEN 11 mg/dL (7-18); CALCIUM 8.7 mg/dL (8.5-10.1); CARBON DIOXIDE 33.4 mmol/L (21-32); CHLORIDE 104 mmol/L (98-107); CREATININE 0.61 mg/dL (0.55-1.02); SODIUM 143 mmol/L (136-145); TOTAL PROTEIN 6.6 g/dL (6.4-8.2); eGFR NON BLACK RACES > 60 (>60)
[2018-03-23] MEDS: ROBITUSSIN DM PO SCH ×3 (08:59→22:31)
[2018-03-23] MEDS: LEVAQUIN PREMIX IV 500 MG 500 MG/100 ML BAG IV SCH (08:59)
[2018-03-23] MEDS ORDERED: LEVAQUIN TAB 750 MG PO SCH (09:00)
[2018-03-23] MEDS ORDERED: LEVAQUIN TAB 500 MG PO SCH (09:00)
[2018-03-23] MEDS ORDERED: ZyPREXA TAB 5 MG PO SCH (10:00)
[2018-03-23] MEDS ORDERED: [UNRECOGNIZED DRUG - OTHER] PO PRN (10:18)
[2018-03-23] MEDS ORDERED: HYDROCODONE PO PRN (10:18)
[2018-03-23] MEDS ORDERED: ACETAMINOPHEN PO PRN (10:18)
[2018-03-23] MEDS ORDERED: OMEGA DHA EPA FISH OIL PO SCH ×2 (10:30)
[2018-03-23] MEDS ORDERED: PATIENT'S HOME MEDICATION (Multivit-Min-Fa-Lycopen-Lutein [Centrum Silver] 1 TAB) PO SCH (10:30)
[2018-03-23] MEDS ORDERED: NORVASC TAB 2.5 MG ONE (11:44)
[2018-03-23] MEDS ORDERED: LEXAPRO ONE (11:45)
[2018-03-23] MEDS ORDERED: ZESTRIL TAB 20 MG ONE ×2 (11:45→21:08)
[2018-03-23] MEDS: NORVASC TAB 2.5 MG PO SCH (11:50)
[2018-03-23] MEDS: PRESER VISION PO SCH (11:50)
[2018-03-23] MEDS: PriLOSEC PO SCH (11:51)
[2018-03-23] MEDS: CRESTOR TAB 10 MG PO SCH (11:51)
[2018-03-23] MEDS: PERIACTIN TAB 4 MG PO SCH ×2 (11:51→21:10)
[2018-03-23] MEDS: ZESTRIL TAB 20 MG PO SCH ×2 (11:51→21:10)
[2018-03-23] MEDS: LEXAPRO PO SCH (11:52)
[2018-03-23] MEDS: MIRALAX POWDER (1 DOSE 17 G) PO SCH (11:53)
[2018-03-23] MEDS ORDERED: ARICEPT TAB 10 MG ONE (11:56)
[2018-03-23] MEDS: ARICEPT TAB 5 MG PO SCH (11:59)
[2018-03-23] MEDS: COLACE CAP 100 MG PO SCH ×2 (12:00→21:03)
[2018-03-23] MEDS: [UNRECOGNIZED DRUG - OTHER] PO SCH ×2 (12:05→22:32)
[2018-03-23] MEDS: LOVAZA PO SCH (21:02)
[2018-03-23] MEDS: NORCO 10/325 TAB PO PRN (21:02)
[2018-03-23] MEDS: ZyPREXA TAB 5 MG PO SCH (21:10)
[2018-03-24] MEDS: DUONEB 0.5 MG/3 MG NEB SCH ×6 (01:15→21:45)
[2018-03-24 06:23] LABS: BASOPHILS % (AUTO) 0.6 % (0.2-1.0); EOSINOPHILS # (AUTO) 0.1 x10^3/uL (0.0-0.2); EOSINOPHILS % (AUTO) 2.1 % (0.9-2.9); HEMATOCRIT 35.6 % (36.0-47.0); HEMOGLOBIN 12.4 g/dL (12.0-16.0); LYMPHOCYTES # (AUTO) 0.9 X10^3/uL (1.3-2.9); LYMPHOCYTES % (AUTO) 20.4 % (21.0-51.0); MEAN CORPUSCULAR HEMOGLOBIN 33.7 pg (27.0-34.0); MEAN CORPUSCULAR HGB CONC 34.8 g/dL (33.0-35.0); MEAN CORPUSCULAR VOLUME 96.9 fL (80.0-100.0); MONOCYTES # (AUTO) 0.5 x10^3/uL (0.3-0.8); MONOCYTES % (AUTO) 12.3 % (0.0-13.0); NEUTROPHILS # (AUTO) 2.7 x10^3/uL (2.2-4.8); NEUTROPHILS % (AUTO) 64.6 % (42.0-75.0); PLATELET COUNT 119 X10^3/uL (150.0-450.0); RED BLOOD COUNT 3.68 X10^6/uL (3.5-5.4); RED CELL DISTRIBUTION WIDTH 13.5 % (11.6-16.5); WHITE BLOOD COUNT 4.2 X10^3/uL (3.6-10.0)
[2018-03-24 06:37] LABS: ALANINE AMINOTRANSFERASE 24 Units/L (12-78); ALKALINE PHOSPHATASE 85 Units/L (46-116); ASPARTATE AMINO TRANSFERASE 22 Units/L (15-37); BLOOD UREA NITROGEN 11 mg/dL (7-18); CALCIUM 8.3 mg/dL (8.5-10.1); CARBON DIOXIDE 29.6 mmol/L (21-32); CHLORIDE 106 mmol/L (98-107); COR CA(FOR HYPOALB) 9.1 mg/dL (8.5-10.1); CREATININE 0.65 mg/dL (0.55-1.02); SODIUM 143 mmol/L (136-145); TOTAL PROTEIN 5.9 g/dL (6.4-8.2); eGFR NON BLACK RACES > 60 (>60)
[2018-03-24] MEDS ORDERED: NS 1/2 1000 ML IV 1,000 ML IV ONE (08:02)
[2018-03-24] MEDS ORDERED: NORVASC TAB 2.5 MG ONE ×2 (09:45→10:00)
[2018-03-24] MEDS ORDERED: ZESTRIL TAB 20 MG ONE ×2 (09:46→20:37)
[2018-03-24] MEDS ORDERED: LEXAPRO ONE (09:46)
[2018-03-24] MEDS: ARICEPT TAB 5 MG PO SCH (09:48)
[2018-03-24] MEDS: LEVAQUIN PREMIX IV 500 MG 500 MG/100 ML BAG IV SCH (09:48)
[2018-03-24] MEDS: ZESTRIL TAB 20 MG PO SCH ×2 (09:48→20:42)
[2018-03-24] MEDS: MIRALAX POWDER (1 DOSE 17 G) PO SCH (09:48)
[2018-03-24] MEDS: NORVASC TAB 2.5 MG PO SCH (09:48)
[2018-03-24] MEDS: ROBITUSSIN DM PO SCH ×4 (09:48→20:41)
[2018-03-24] MEDS: MOBIC TAB 15 MG PO SCH (09:49)
[2018-03-24] MEDS: PriLOSEC PO SCH (09:49)
[2018-03-24] MEDS: COLACE CAP 100 MG PO SCH ×2 (09:49→20:41)
[2018-03-24] MEDS: TAB-A-VITE PO SCH (09:50)
[2018-03-24] MEDS: PERIACTIN TAB 4 MG PO SCH ×2 (09:50→20:41)
[2018-03-24] MEDS: LOVAZA PO SCH ×2 (09:50→20:41)
[2018-03-24] MEDS: LEXAPRO PO SCH (09:50)
[2018-03-24] MEDS: NS 1/2 1000 ML IV 1,000 ML IV SCH ×3 (10:36→13:49)
[2018-03-24] MEDS: CRESTOR TAB 10 MG PO SCH (10:37)
[2018-03-24] MEDS: PRESER VISION PO SCH (10:37)
[2018-03-24] MEDS: [UNRECOGNIZED DRUG - OTHER] PO SCH ×2 (10:38→20:52)
[2018-03-24] MEDS: NORCO 10/325 TAB PO PRN (16:18)
--- NOTE | 2018-03-24 16:35 | CT ---
CT head without contrast Indication: Fall Technique: Helical CT images of the brain were obtained without IV contrast. Reformatted images in th e coronal and sagittal planes were also generated for review. Comparison: 01/01/2017 Findings: There is stable age-appropriate generalized cerebral atrophy. Diffuse confluent areas of pe riventricular and subcortical white matter hypoattenuation also appear stable in the interval, sugges tive for advanced microangiopathic disease. You-white differentiation is otherwise maintained. No vi sible acute infarct, intracranial hemorrhage, extra-axial collection, hydrocephalus or mass is identi fied. The visualized paranasal sinuses and mastoid air cells are clear. The imaged extracranial struc tures are grossly unremarkable. Impression: Stable exam without acute intracranial abnormality. Reported By:
--- NOTE | 2018-03-24 16:47 | CT ---
Indication: Fall and back pain Exam: CT lumbar spine without contrast. Technique: Axial spiral images were obtained from T11 through the coccyx without contrast. Coronal an d sagittal reconstructions were performed. Automated does control was utilized. Comparison: None. Findings: There is moderate to severe disc space narrowing throughout with large marginal osteophytes throughout and vacuum disc phenomena throughout. There is moderate scoliosis convex to the left and centered along the mid lumbar region. There is minimal subluxation L5 on S1. No fracture is seen. The re is minimal retrolisthesis of L1 on L2 . The vertebral body height is well maintained throughout. T here are moderate sclerotic changes of the facets throughout with no pars defects. The bones are penny rely osteopenic. There are moderate hypertrophic and sclerotic changes of the facets with ligament fl avum hypertrophy causing diffuse moderate to severe spinal stenosis which is most prominent L4-5 and L3-4 . There are small central disc bulges at L3-4 , L4-5 , and L2-3 . There is a moderate disc bulge at L1-2 . The paravertebral soft tissues are normal. The sacrum and SI joints are intact. 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 Moderate scoliosis mild subluxation of L5 on S1 and mild retrolisthesis of L1 on L2 which appears deg enerative in etiology with no pars defects . Moderately severe osteoarthritic changes of the facets throughout causing diffuse moderate spinal yung nosis which is most severe at L3-4 and L4-5 . Fokl-sl-sbovxmbr disc bulges throughout. Moderate osteopenia. Reported By:
[2018-03-24] MEDS: ZyPREXA TAB 5 MG PO SCH (20:40)
--- NOTE | 2018-03-24 21:57 | PCM.PROG ---
Progress Note - Progress Note for Day of Date of Exam: 03/23/18 - Subjective Subjective: WAS ADMITTED FOR PNEUMONIA, ALTERED MENTAL STATUS, AND INSOMNIA. TODAY, SHE IS LYING IN BED ON MORNING ROUNDS. SHE CONTINUES WITH CONFUSION AND DISORIENTATION. DAUGHTER REPORTS THAT SHE HAS HAD A COUGH THROUGHOUT THE NIGHT. ON EXAMINATION, HEART IS REGULAR IN RATE AND RHYTHM. BILAT ERAL LUNGS ARE NOTED WITH SCATTERED WHEEZING THROUGHOUT. SHE IS CURRENTLY UTILIZING OXYGEN VIA NASAL CANNULA AT 2L/MIN. ABDOMEN IS ROUND, SOFT, AND NON- TENDER WITH NORMAL BOWEL SOUNDS NOTED IN ALL QUADRANTS. HER VITALS THIS MORNING ARE 98.0-76-22-97%-139/109. LABS WERE OBTAINED. SHE REMAINS HEMODYNAMICALLY STABLE TODAY. BLOOD CULTURES ARE PENDING. SHE IS CURRENTLY RECEIVING IV FLUIDS AND IV ANTIBIOTICS. TODAY, WE WILL ADD ZYPREXA 5MG DAILY IN ADDITION TO THE 10MG THAT SHE RECEIVES AT BEDTIME. OTHERWISE, WE WILL INCLUDE HOME MEDICATIONS WHICH INCLUDE ANTI-HYPERTENSIVE MEDICATIONS. WE WILL FOLLOW UP WITH AM LABS AND CONTINUE TO MONITOR PATIENT. - Past Medical Family Social History Past Med/Fam/Surg Hx: No changes since H&P Allergies: Allergies Penicillins Allergy (Verified 09/21/17 20:54) Sulfa (Sulfonamide Antibiotics) [SULFA] Allergy (Verified 09/21/17 20:54) - Review of Systems ROS: No change since H&P - Vital Signs and I&O's Vital Signs: Temperature 98.7 F Pulse Rate [Left Brachial] 75 Pulse Rate 68 Respiratory Rate 20 Blood Pressure [Right Arm] 135/74 Blood Pressure [Left Arm] 139/109 Blood Pressure 163/94 O2 Sat by Pulse Oximetry 92 Intake and Output: Intake & Output 03/22/18 03/23/18 03/24/18 03/25/18 11:59 11:59 11:59 11:59 Intake Total 650 / 650 1643 / 1643 840 / 840 Balance 650 / 650 1643 / 1643 840 / 840 - Physical Exam Oriented: Not Oriented Eyes: Normal Ear: Normal Nose: Normal Throat: Normal Respiratory: Generalized, Wheezes Cardiovascular: Normal. negative: S3, S4, Murmur : Normal Auscultation: Bowel Sounds: Normal Palpation: Normal Tenderness: Normal Skin: Normal Musculoskeletal: Normal Psychiatric: Anxiety, Agitation Mood Description: Anxious Affect: Anxious Speech Pattern: Clear, Appropriate - Laboratory and Diagnostics Result Diagrams: 03/24/18 05:43 03/24/18 05:43 Labs: 03/22/18 17:10 Blood Blood Culture - Preliminary 03/22/18 17:10 Blood Blood Culture - Preliminary Laboratory WBC 4.2 X10^3/uL (3.6-10.0) 03/24/18 05:43 RBC 3.68 X10^6/uL (3.5-5.4) 03/24/18 05:43 Hgb 12.4 g/dL (12.0-16.0) 03/24/18 05:43 Hct 35.6 % (36.0-47.0) L 03/24/18 05:43 MCV 96.9 fL (80.0-100.0) 03/24/18 05:43 MCH 33.7 pg (27.0-34.0) 03/24/18 05:43 MCHC 34.8 g/dL (33.0-35.0) 03/24/18 05:43 RDW 13.5 % (11.6-16.5) 03/24/18 05:43 Plt Count 119 X10^3/uL (150.0-450.0) L 03/24/18 05:43 MPV 9.0 fL (7.4-11.0) 03/24/18 05:43 Neut % (Auto) 64.6 % (42.0-75.0) 03/24/18 05:43 Lymph % (Auto) 20.4 % (21.0-51.0) L 03/24/18 05:43 [place] % (Auto) 12.3 % (0.0-13.0) 03/24/18 05:43 Eos % (Auto) 2.1 % (0.9-2.9) 03/24/18 05:43 Baso % (Auto) 0.6 % (0.2-1.0) 03/24/18 05:43 Neut # (Auto) 2.7 x10^3/uL (2.2-4.8) 03/24/18 05:43 Lymph # (Auto) 0.9 X10^3/uL (1.3-2.9) L 03/24/18 05:43 [place] # (Auto) 0.5 x10^3/uL (0.3-0.8) 03/24/18 05:43 Eos # (Auto) 0.1 x10^3/uL (0.0-0.2) 03/24/18 05:43 Baso # (Auto) 0.0 X10^3/uL (0.0-0.1) 03/24/18 05:43 Absolute Nucleated RBC 0.0 /100WBC 03/24/18 05:43 Sodium 143 mmol/L (136-145) 03/24/18 05:43 Corrected Sodium TNP 03/24/18 05:43 Potassium 3.9 mmol/L (3.5-5.1) 03/24/18 05:43 Chloride 106 mmol/L (98-107) 03/24/18 05:43 Carbon Dioxide 29.6 mmol/L (21-32) 03/24/18 05:43 BUN 11 mg/dL (7-18) 03/24/18 05:43 Creatinine 0.65 mg/dL (0.55-1.02) 03/24/18 05:43 Est GFR (MDRD) Af Amer > 60 (>60) 03/24/18 05:43 Est GFR (MDRD) Non-Af > 60 (>60) 03/24/18 05:43 Glucose 94 mg/dL (65-99) 03/24/18 05:43 Calcium 8.3 mg/dL (8.5-10.1) L 03/24/18 05:43 Corrected Calcium 9.1 mg/dL (8.5-10.1) 03/24/18 05:43 Total Bilirubin 0.40 mg/dL (0.2-1.0) 03/24/18 05:43 AST 22 Units/L (15-37) 03/24/18 05:43 ALT 24 Units/L (12-78) 03/24/18 05:43 Alkaline Phosphatase 85 Units/L (46-116) 03/24/18 05:43 Creatine Kinase 57 Units/L (26-192) 03/22/18 14:25 CK-MB (CK-2) 1.2 ng/mL (0-4.0) 03/22/18 14:25 CK/CKMB % Calc 2.1 % (<4) 03/22/18 14:25 Troponin I < 0.02 ng/mL (0-1.5) 03/22/18 14:25 Total Protein 5.9 g/dL (6.4-8.2) L 03/24/18 05:43 Albumin 3.0 g/dL (3.4-5.0) L 03/24/18 05:43 Globulin 2.9 g/dL (2.5-4.5) 03/24/18 05:43 Albumin/Globulin Ratio 1.0 Ratio (1.1-2.1) L 03/24/18 05:43 Specimen Type Clean catch urine 03/22/18 14:25 Urine Color Yellow (YELLOW) 03/22/18 14:25 Urine Appearance Clear (CLEAR) 03/22/18 14:25 Urine pH 8.0 (5.0 - 8.0) 03/22/18 14:25 Ur Specific [place] 1.015 (1.000-1.030) 03/22/18 14:25 Urine Protein Negative (NEGATIVE) 03/22/18 14:25 Urine Glucose (UA) Negative (NEGATIVE) 03/22/18 14:25 Urine Ketones Negative (NEGATIVE) 03/22/18 14:25 Urine Occult Blood Negative (NEGATIVE) 03/22/18 14:25 Urine Nitrite Negative (NEGATIVE) 03/22/18 14:25 Urine Bilirubin Negative (NEGATIVE) 03/22/18 14:25 Urine Urobilinogen Normal (NORMAL) 03/22/18 14:25 Ur Leukocyte Esterase Negative (NEGATIVE) 03/22/18 14:25 - Plan (1) Pneumonia Status: Acute Qualifiers: Pneumonia type: due to unspecified organism Laterality: right Lung location: lower lobe of lung Qualified Code(s): J18.1 - Lobar pneumonia, unspecified organism Plan: IV ANTIBIOTICS, RESPIRATORY TREATMENTS, SUPPLEMENTAL OXYGEN, CONTINUE TO MONITOR (2) Altered mental status Status: Acute Qualifiers: Altered mental status type: transient alteration of awareness Qualified Code(s): R40.4 - Transient alteration of awareness Plan: ZYPREXA 5MG PO DAILY, ZYPREXA 10MG PO HS, CONTINUE TO MONITOR
[2018-03-25 06:03] LABS: BASOPHILS % (AUTO) 0.7 % (0.2-1.0); EOSINOPHILS # (AUTO) 0.1 x10^3/uL (0.0-0.2); EOSINOPHILS % (AUTO) 2.9 % (0.9-2.9); HEMATOCRIT 36.4 % (36.0-47.0); HEMOGLOBIN 12.4 g/dL (12.0-16.0); LYMPHOCYTES # (AUTO) 0.8 X10^3/uL (1.3-2.9); LYMPHOCYTES % (AUTO) 17.5 % (21.0-51.0); MEAN CORPUSCULAR HEMOGLOBIN 33.3 pg (27.0-34.0); MEAN CORPUSCULAR VOLUME 97.8 fL (80.0-100.0); MEAN PLATELET VOLUME 8.9 fL (7.4-11.0); MONOCYTES # (AUTO) 0.6 x10^3/uL (0.3-0.8); MONOCYTES % (AUTO) 12.7 % (0.0-13.0); NEUTROPHILS # (AUTO) 2.9 x10^3/uL (2.2-4.8); NEUTROPHILS % (AUTO) 66.2 % (42.0-75.0); PLATELET COUNT 117 X10^3/uL (150.0-450.0); RED BLOOD COUNT 3.72 X10^6/uL (3.5-5.4); RED CELL DISTRIBUTION WIDTH 13.5 % (11.6-16.5); WHITE BLOOD COUNT 4.4 X10^3/uL (3.6-10.0)
[2018-03-25 06:18] LABS: ALANINE AMINOTRANSFERASE 24 Units/L (12-78); ALBUMIN 3.1 g/dL (3.4-5.0); ALKALINE PHOSPHATASE 94 Units/L (46-116); ASPARTATE AMINO TRANSFERASE 20 Units/L (15-37); BLOOD UREA NITROGEN 19 mg/dL (7-18); CALCIUM 8.5 mg/dL (8.5-10.1); CHLORIDE 107 mmol/L (98-107); COR CA(FOR HYPOALB) 9.2 mg/dL (8.5-10.1); CREATININE 0.82 mg/dL (0.55-1.02); SODIUM 143 mmol/L (136-145); TOTAL PROTEIN 5.9 g/dL (6.4-8.2); eGFR NON BLACK RACES > 60 (>60)
[2018-03-25] MEDS: NS 1/2 1000 ML IV 1,000 ML IV SCH (06:31)
--- NOTE | 2018-03-25 07:37 | RAD ---
HISTORY: Shortness of breath Study: Chest AP portable Comparison: 03/22/2018 Findings: The heart remains enlarged. The aorta is ectatic and calcified. No congestive heart failure is noted. The lungs are hypo inflated. No acute alveolar infiltrates are identified. Interstitial lung changes are present. There appears to be some areas of focal bronchiectasis in the right upper lobe. The bon y thorax is unremarkable. IMPRESSION: Lungs hypo inflated but free of acute infiltrates Focal area bronchiectasis in the right upper lobe Mild interstitial lung changes Mild cardiomegaly without congestive heart failure Reported By:
[2018-03-25] MEDS: DUONEB 0.5 MG/3 MG NEB SCH ×4 (08:20→20:30)
--- NOTE | 2018-03-25 08:22 | DR.H&P ---
H&P - History & Physical for Day of: H&P Date: 03/22/18 - Chief Complaint Chief Complaint: headache, abdominal pain, AMS, insomnia - History of Present Illness History of Present Illness: is a 87 year old patient of ours who presented to the emergency room with complaints of headache and abdominal pain. Patients daughter reports that patient has been awake all day and night. Symptoms started today. Daughter also reports that patient has been confused and disoriented. Patient denies nausea or vomiting. On arrival, vitals were 98.6 -77-18-92%-163/94. Labs were obtained. Abnormal lab values include the following : Plt count 139, carbon dioxide 33.1, glucose 100. An abdomen/pelvis CT with contrast was obtained and revealed: Previous cholecystectomy which is unchanged with no acute intra-abdominal abnormality seen. No hydronephrosis or renal stones and no CT evidence of urinary obstruction. Status post hysterectomy with no pelvic mass. Moderate diverticulosis of the sigmoid colon with no pericolonic inflammation. 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 Bibasilar fibrosis and scarring with a questionable early infiltrate or progressive scarring along the right lung base , recommend follow-up. EKG revealed: sinus rhythm with HR 62. She was admitted for further evaluation and treatment of pneumonia, altered mental status, and insomnia. She was started on NS at 30ml/hr, levaquin 500mg IV daily, and duonebs. We plan to follow up with AM labs and continue to monitor patient. - Past Medical History Past Medical History: Hypertension, Dyslipidemia, Dementia, Depression, Anxiety , COPD, GERD, Arthritis - Past Surgical History Surgical History: 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, D[employer]NUT D[employer] MIXER Surgery, Hysterectomy, Joint Replacement - Family History Family Medical History: Diabetes Mellitus, Cancer, [place], Coronary Artery Disease, Sudden Cardiac - Social History Does patient currently use any type of tobacco product: No Have you used tobacco products in the last 12 months: No Type of Tobacco Use: None Does any household member use tobacco: No Alcohol Use: None Drug Use: None - Medications Home Medications: Penicillins Allergy (Verified 09/21/17 20:54) Sulfa (Sulfonamide Antibiotics) [SULFA] Allergy (Verified 09/21/17 20:54) CONTINUE taking the following medications Preser Vision 1 tab PO DAILY 03/22/18 [History] Viactir 1 tab PO BID 03/22/18 [History] amlodipine 1 tab PO DAILY 03/22/18 [History] docusate sodium [Col-Rite] 1 cap PO BID 03/22/18 [History] donepezil 1 tab PO DAILY 03/22/18 [History] lisinopril 1 tab PO BID 03/22/18 [History] olanzapine 1 tab PO HS 03/22/18 [History] omega [id number] oil [Fish Oil] 1,200 mg PO BID 03/22/18 [History] polyethylene glycol 3350 17 g/day PO DAILY 03/22/18 [History] rosuvastatin [Crestor] 1 tab PO DAILY 03/22/18 [History] - Review of Systems Constitutional: Weakness, Malaise Eyes: No Symptoms Reported ENT: No Symptoms Reported Respiratory: Cough, Shortness of Breath, Wheezing Cardiovascular: No Symptoms Reported Gastrointestinal: See HPI, Abdominal Pain. denies: Nausea, Vomiting Genitourinary: No Symptoms Reported Musculoskeletal: No Symptoms Reported Skin: No Symptoms Reported Neurological: Weakness - Physical Exam Vital Signs: Temperature 97.7 F Pulse Rate [Left Brachial] 73 Pulse Rate 68 Respiratory Rate 18 Blood Pressure [Right Arm] 116/57 Blood Pressure [Left Arm] 139/109 Blood Pressure 163/94 O2 Sat by Pulse Oximetry 97 Oriented: Not Oriented Eyes: Normal Ear: Normal Nose: Normal Throat: Normal Respiratory: Wheezes Throughout Cardiovascular: Normal. negative: S3, S4, Murmur : Normal Auscultation: Bowel Sounds: Normal Palpation: Normal Tenderness: Normal Skin: Normal Musculoskeletal: Normal Psychiatric: Normal Mood Description: Anxious Affect: Anxious Speech Pattern: Inappropriate - Assessment/Plan (1) Pneumonia Qualifiers: Pneumonia type: due to unspecified organism Laterality: right Lung location: lower lobe of lung Qualified Code(s): J18.1 - Lobar pneumonia, unspecified organism Status: Acute Plan: pneumonia protocol, iv antibiotics, respiratory treatments, supplemental oxygen, continue to monitor (2) Altered mental status Qualifiers: Altered mental status type: transient alteration of awareness Qualified Code(s): R40.4 - Transient alteration of awareness Status: Acute (3) Insomnia Qualifiers: Insomnia type: unspecified Qualified Code(s): G47.00 - Insomnia, unspecified Status: Acute - Allergies Allergies/Adverse Reactions: Allergies Allergy/AdvReac Type Severity Reaction Status Date / Time Penicillins Allergy Verified 09/21/17 20:54 Sulfa (Sulfonamide Allergy Verified 09/21/17 20:54 Antibiotics) [SULFA]
[2018-03-25] MEDS ORDERED: NORVASC TAB 2.5 MG ONE (08:37)
[2018-03-25] MEDS ORDERED: LEXAPRO ONE (08:38)
[2018-03-25] MEDS ORDERED: ZESTRIL TAB 20 MG ONE ×2 (08:38→19:59)
[2018-03-25] MEDS: PERIACTIN TAB 4 MG PO SCH ×2 (08:49→20:04)
[2018-03-25] MEDS: TAB-A-VITE PO SCH (08:49)
[2018-03-25] MEDS: LEVAQUIN PREMIX IV 500 MG 500 MG/100 ML BAG IV SCH (08:49)
[2018-03-25] MEDS: MIRALAX POWDER (1 DOSE 17 G) PO SCH (08:49)
[2018-03-25] MEDS: LEXAPRO PO SCH (08:50)
[2018-03-25] MEDS: PriLOSEC PO SCH (08:50)
[2018-03-25] MEDS: MOBIC TAB 15 MG PO SCH (08:50)
[2018-03-25] MEDS: ARICEPT TAB 5 MG PO SCH (08:50)
[2018-03-25] MEDS: NORVASC TAB 2.5 MG PO SCH (08:51)
[2018-03-25] MEDS: ROBITUSSIN DM PO SCH ×5 (08:51→20:06)
[2018-03-25] MEDS: CRESTOR TAB 10 MG PO SCH (08:51)
[2018-03-25] MEDS: COLACE CAP 100 MG PO SCH ×2 (08:51→20:04)
[2018-03-25] MEDS: ZESTRIL TAB 20 MG PO SCH ×2 (08:51→20:05)
[2018-03-25] MEDS: LOVAZA PO SCH ×2 (08:52→20:07)
[2018-03-25] MEDS: PRESER VISION PO SCH (08:59)
[2018-03-25] MEDS: [UNRECOGNIZED DRUG - OTHER] PO SCH ×2 (08:59→20:06)
[2018-03-25] MEDS: LEVAQUIN TAB 500 MG PO SCH (11:21)
[2018-03-25] MEDS: ZyPREXA TAB 5 MG PO SCH ×2 (11:21→20:04)
[2018-03-25] MEDS ORDERED: KLONOPIN TAB 1 MG PO SCH (21:00)
--- NOTE | 2018-03-25 23:57 | PCM.PROG ---
Progress Note - Progress Note for Day of Date of Exam: 03/24/18 - Subjective Subjective: WAS ADMITTED FOR PNEUMONIA, ALTERED MENTAL STATUS, AND INSOMNIA. TODAY, SHE IS LYING IN BED ON MORNING ROUNDS. SHE CONTINUES WITH CONFUSION AND DISORIENTATION. DAUGHTER REPORTS THAT SHE CONTINUED TO BE RESTLESS THROUGHOUT THE NIGHT AND CONFUSED. ON EXAMINATION, HEART IS REGULAR IN RATE AND RHYTHM. BILATERAL LUNGS ARE NOTED WITH SCATTERED WHEEZING THROUGHOUT. SHE IS CURRENTLY UTILIZING OXYGEN VIA NASAL CANNULA AT 2L/MIN. ABDOMEN IS ROUND, SOFT, AND NON-TENDER WITH NORMAL BOWEL SOUNDS NOTED IN ALL QUADRANTS. HER VITALS THIS MORNING ARE 97.6-60-18-94%NC-131/69. LABS WERE OBTAINED. SHE REMAINS HEMODYNAMICALLY STABLE TODAY. BLOOD CULTURES ARE PENDING. SHE IS CURRENTLY RECEIVING IV FLUIDS AND IV ANTIBIOTICS AND ZYPREXA FOR AGITATION. WE WILL CONTINUE WITH CURRENT PLAN OF CARE TODAY. OTHERWISE, WE WILL FOLLOW UP WITH AM LABS AND CONTINUE TO MONITOR PATIENT. - Past Medical Family Social History Past Med/Fam/Surg Hx: No changes since H&P Allergies: Allergies Penicillins Allergy (Verified 09/21/17 20:54) Sulfa (Sulfonamide Antibiotics) [SULFA] Allergy (Verified 09/21/17 20:54) - Review of Systems ROS: No change since H&P - Vital Signs and I&O's Vital Signs: Temperature 98.1 F Pulse Rate [Left Brachial] 78 Pulse Rate 75 Respiratory Rate 18 Blood Pressure [Right Arm] 99/60 Blood Pressure [Left Arm] 139/109 Blood Pressure 163/94 O2 Sat by Pulse Oximetry 93 Intake and Output: Intake & Output 03/23/18 03/24/18 03/25/18 03/26/18 11:59 11:59 11:59 11:59 Intake Total 650 / 650 1643 / 1643 1838 / 1838 740 / 740 Balance 650 / 650 1643 / 1643 1838 / 1838 740 / 740 - Physical Exam Oriented: Not Oriented Eyes: Normal Ear: Normal Nose: Normal Throat: Normal Respiratory: Generalized, Wheezes Cardiovascular: Normal. negative: S3, S4, Murmur : Normal Auscultation: Bowel Sounds: Normal Palpation: Normal Tenderness: Normal Skin: Normal Musculoskeletal: Normal Psychiatric: Normal Mood Description: Anxious Affect: Anxious Speech Pattern: Clear, Appropriate - Laboratory and Diagnostics Result Diagrams: 03/25/18 05:38 03/25/18 05:38 Labs: 03/22/18 17:10 Blood Blood Culture - Preliminary 03/22/18 17:10 Blood Blood Culture - Preliminary Laboratory WBC 4.4 X10^3/uL (3.6-10.0) 03/25/18 05:38 RBC 3.72 X10^6/uL (3.5-5.4) 03/25/18 05:38 Hgb 12.4 g/dL (12.0-16.0) 03/25/18 05:38 Hct 36.4 % (36.0-47.0) 03/25/18 05:38 MCV 97.8 fL (80.0-100.0) 03/25/18 05:38 MCH 33.3 pg (27.0-34.0) 03/25/18 05:38 MCHC 34.0 g/dL (33.0-35.0) 03/25/18 05:38 RDW 13.5 % (11.6-16.5) 03/25/18 05:38 Plt Count 117 X10^3/uL (150.0-450.0) L 03/25/18 05:38 MPV 8.9 fL (7.4-11.0) 03/25/18 05:38 Neut % (Auto) 66.2 % (42.0-75.0) 03/25/18 05:38 Lymph % (Auto) 17.5 % (21.0-51.0) L 03/25/18 05:38 [place] % (Auto) 12.7 % (0.0-13.0) 03/25/18 05:38 Eos % (Auto) 2.9 % (0.9-2.9) 03/25/18 05:38 Baso % (Auto) 0.7 % (0.2-1.0) 03/25/18 05:38 Neut # (Auto) 2.9 x10^3/uL (2.2-4.8) 03/25/18 05:38 Lymph # (Auto) 0.8 X10^3/uL (1.3-2.9) L 03/25/18 05:38 [place] # (Auto) 0.6 x10^3/uL (0.3-0.8) 03/25/18 05:38 Eos # (Auto) 0.1 x10^3/uL (0.0-0.2) 03/25/18 05:38 Baso # (Auto) 0.0 X10^3/uL (0.0-0.1) 03/25/18 05:38 Absolute Nucleated RBC 0.0 /100WBC 03/25/18 05:38 Sodium 143 mmol/L (136-145) 03/25/18 05:38 Corrected Sodium TNP 03/25/18 05:38 Potassium 4.0 mmol/L (3.5-5.1) 03/25/18 05:38 Chloride 107 mmol/L (98-107) 03/25/18 05:38 Carbon Dioxide 28.0 mmol/L (21-32) 03/25/18 05:38 BUN 19 mg/dL (7-18) H 03/25/18 05:38 Creatinine 0.82 mg/dL (0.55-1.02) 03/25/18 05:38 Est GFR (MDRD) Af Amer > 60 (>60) 03/25/18 05:38 Est GFR (MDRD) Non-Af > 60 (>60) 03/25/18 05:38 Glucose 96 mg/dL (65-99) 03/25/18 05:38 Calcium 8.5 mg/dL (8.5-10.1) 03/25/18 05:38 Corrected Calcium 9.2 mg/dL (8.5-10.1) 03/25/18 05:38 Total Bilirubin 0.30 mg/dL (0.2-1.0) 03/25/18 05:38 AST 20 Units/L (15-37) 03/25/18 05:38 ALT 24 Units/L (12-78) 03/25/18 05:38 Alkaline Phosphatase 94 Units/L (46-116) 03/25/18 05:38 Creatine Kinase 57 Units/L (26-192) 03/22/18 14:25 CK-MB (CK-2) 1.2 ng/mL (0-4.0) 03/22/18 14:25 CK/CKMB % Calc 2.1 % (<4) 03/22/18 14:25 Troponin I < 0.02 ng/mL (0-1.5) 03/22/18 14:25 Total Protein 5.9 g/dL (6.4-8.2) L 03/25/18 05:38 Albumin 3.1 g/dL (3.4-5.0) L 03/25/18 05:38 Globulin 2.8 g/dL (2.5-4.5) 03/25/18 05:38 Albumin/Globulin Ratio 1.1 Ratio (1.1-2.1) 03/25/18 05:38 Specimen Type Clean catch urine 03/22/18 14:25 Urine Color Yellow (YELLOW) 03/22/18 14:25 Urine Appearance Clear (CLEAR) 03/22/18 14:25 Urine pH 8.0 (5.0 - 8.0) 03/22/18 14:25 Ur Specific [place] 1.015 (1.000-1.030) 03/22/18 14:25 Urine Protein Negative (NEGATIVE) 03/22/18 14:25 Urine Glucose (UA) Negative (NEGATIVE) 03/22/18 14:25 Urine Ketones Negative (NEGATIVE) 03/22/18 14:25 Urine Occult Blood Negative (NEGATIVE) 03/22/18 14:25 Urine Nitrite Negative (NEGATIVE) 03/22/18 14:25 Urine Bilirubin Negative (NEGATIVE) 03/22/18 14:25 Urine Urobilinogen Normal (NORMAL) 03/22/18 14:25 Ur Leukocyte Esterase Negative (NEGATIVE) 03/22/18 14:25 - Plan (1) Pneumonia Status: Acute Qualifiers: Pneumonia type: due to unspecified organism Laterality: right Lung location: lower lobe of lung Qualified Code(s): J18.1 - Lobar pneumonia, unspecified organism Plan: pneumonia protocol, iv antibiotics, respiratory treatments, supplemental oxygen, continue to monitor (2) Altered mental status Status: Acute Qualifiers: Altered mental status type: transient alteration of awareness Qualified Code(s): R40.4 - Transient alteration of awareness Plan: ZYPREXA 5MG PO DAILY, ZYPREXA 10MG PO HS, CONTINUE TO MONITOR (3) Insomnia Status: Acute Qualifiers: Insomnia type: unspecified Qualified Code(s): G47.00 - Insomnia, unspecified
--- NOTE | 2018-03-26 00:04 | PCM.PROG ---
Progress Note - Progress Note for Day of Date of Exam: 03/25/18 - Subjective Subjective: WAS ADMITTED FOR PNEUMONIA, ALTERED MENTAL STATUS, AND INSOMNIA. TODAY, SHE IS LYING IN BED ON MORNING ROUNDS. SHE CONTINUES WITH CONFUSION AND DISORIENTATION. STAFF REPORTS THAT PATIENT FELL YESTERDAY AFTERNOON WHEN PATIENTS DAUGHTER WAS ASSISTING HER TO THE BATHROOM. DAUGHER REPORTS THAT SHE HAS HAD INCREASED CONFUSION SINCE ADMISSION. ON EXAMINATION, HEART IS REGULAR IN RATE AND RHYTHM. BILATERAL LUNGS ARE NOTED WITH SCATTERED WHEEZING THROUGHOUT. SHE IS CURRENTLY UTILIZING OXYGEN VIA NASAL CANNULA AT 2L/ MIN. ABDOMEN IS ROUND, SOFT, AND NON-TENDER WITH NORMAL BOWEL SOUNDS NOTED IN ALL QUADRANTS. HER VITALS THIS MORNING ARE 98.7-63-20-93%-152/75. LABS WERE OBTAINED. SHE REMAINS HEMODYNAMICALLY STABLE TODAY. BLOOD CULTURES ARE PENDING. A BRAIN CT WAS OBTAINED YESTERDAY AND REVEALED: Stable exam without acute intracranial abnormality. A LUMBAR SPINE CT WAS OBTAINED AND REVEALED: There is moderate to severe disc space narrowing throughout with large marginal osteophytes throughout and vacuum disc phenomena throughout. There is moderate scoliosis convex to the left and centered along the mid lumbar region. There is minimal subluxation L5 on S1. No fracture is seen. There is minimal retrolisthesis of L1 on L2 . The vertebral body height is well maintained throughout. There are moderate sclerotic changes of the facets throughout with no pars defects. The bones are severely osteopenic. There are moderate hypertrophic and sclerotic changes of the facets with ligament flavum hypertrophy causing diffuse moderate to severe spinal stenosis which is most prominent L4-5 and L3-4 . There are small central disc bulges at L3-4 , L4-5 , and L2-3 . There is a moderate disc bulge at L1-2 . The paravertebral soft tissues are normal. The sacrum and SI joints are intact. A CHEST XRAY WAS OBTAINED THIS MORNING AND REVEALED: Lungs hypo inflated but free of acute infiltrates. Focal area bronchiectasis in the right upper lobe. Mild interstitial lung changes. Mild cardiomegaly without congestive heart failure. PATIENT PULLED HER IV OUT LAST NIGHT. TODAY, WE WILL CHANGE IV ANTIBIOTICS TO PO. WE WILL ALSO START KLONOPIN 1MG PO HS FOR REST AND AGITATION. OTHERWISE, WE WILL FOLLOW UP WITH AM LABS AND CONTINUE TO MONITOR PATIENT. - Past Medical Family Social History Past Med/Fam/Surg Hx: No changes since H&P Allergies: Allergies Penicillins Allergy (Verified 09/21/17 20:54) Sulfa (Sulfonamide Antibiotics) [SULFA] Allergy (Verified 09/21/17 20:54) - Review of Systems ROS: No change since H&P - Vital Signs and I&O's Vital Signs: Temperature 98.1 F Pulse Rate [Left Brachial] 78 Pulse Rate 75 Respiratory Rate 18 Blood Pressure [Right Arm] 99/60 Blood Pressure [Left Arm] 139/109 Blood Pressure 163/94 O2 Sat by Pulse Oximetry 93 Intake and Output: Intake & Output 03/23/18 03/24/18 03/25/18 03/26/18 11:59 11:59 11:59 11:59 Intake Total 650 / 650 1643 / 1643 1838 / 1838 740 / 740 Balance 650 / 650 1643 / 1643 1838 / 1838 740 / 740 - Physical Exam Oriented: Not Oriented Eyes: Normal Ear: Normal Nose: Normal Throat: Normal Respiratory: Generalized, Wheezes Cardiovascular: Normal. negative: S3, S4, Murmur : Normal Auscultation: Bowel Sounds: Normal Palpation: Normal Tenderness: Normal Skin: Normal Musculoskeletal: Normal Psychiatric: Normal Mood Description: Anxious Affect: Anxious Speech Pattern: Clear, Appropriate - Laboratory and Diagnostics Result Diagrams: 03/25/18 05:38 03/25/18 05:38 Labs: 03/22/18 17:10 Blood Blood Culture - Preliminary 03/22/18 17:10 Blood Blood Culture - Preliminary Laboratory WBC 4.4 X10^3/uL (3.6-10.0) 03/25/18 05:38 RBC 3.72 X10^6/uL (3.5-5.4) 03/25/18 05:38 Hgb 12.4 g/dL (12.0-16.0) 03/25/18 05:38 Hct 36.4 % (36.0-47.0) 03/25/18 05:38 MCV 97.8 fL (80.0-100.0) 03/25/18 05:38 MCH 33.3 pg (27.0-34.0) 03/25/18 05:38 MCHC 34.0 g/dL (33.0-35.0) 03/25/18 05:38 RDW 13.5 % (11.6-16.5) 03/25/18 05:38 Plt Count 117 X10^3/uL (150.0-450.0) L 03/25/18 05:38 MPV 8.9 fL (7.4-11.0) 03/25/18 05:38 Neut % (Auto) 66.2 % (42.0-75.0) 03/25/18 05:38 Lymph % (Auto) 17.5 % (21.0-51.0) L 03/25/18 05:38 [place] % (Auto) 12.7 % (0.0-13.0) 03/25/18 05:38 Eos % (Auto) 2.9 % (0.9-2.9) 03/25/18 05:38 Baso % (Auto) 0.7 % (0.2-1.0) 03/25/18 05:38 Neut # (Auto) 2.9 x10^3/uL (2.2-4.8) 03/25/18 05:38 Lymph # (Auto) 0.8 X10^3/uL (1.3-2.9) L 03/25/18 05:38 [place] # (Auto) 0.6 x10^3/uL (0.3-0.8) 03/25/18 05:38 Eos # (Auto) 0.1 x10^3/uL (0.0-0.2) 03/25/18 05:38 Baso # (Auto) 0.0 X10^3/uL (0.0-0.1) 03/25/18 05:38 Absolute Nucleated RBC 0.0 /100WBC 03/25/18 05:38 Sodium 143 mmol/L (136-145) 03/25/18 05:38 Corrected Sodium TNP 03/25/18 05:38 Potassium 4.0 mmol/L (3.5-5.1) 03/25/18 05:38 Chloride 107 mmol/L (98-107) 03/25/18 05:38 Carbon Dioxide 28.0 mmol/L (21-32) 03/25/18 05:38 BUN 19 mg/dL (7-18) H 03/25/18 05:38 Creatinine 0.82 mg/dL (0.55-1.02) 03/25/18 05:38 Est GFR (MDRD) Af Amer > 60 (>60) 03/25/18 05:38 Est GFR (MDRD) Non-Af > 60 (>60) 03/25/18 05:38 Glucose 96 mg/dL (65-99) 03/25/18 05:38 Calcium 8.5 mg/dL (8.5-10.1) 03/25/18 05:38 Corrected Calcium 9.2 mg/dL (8.5-10.1) 03/25/18 05:38 Total Bilirubin 0.30 mg/dL (0.2-1.0) 03/25/18 05:38 AST 20 Units/L (15-37) 03/25/18 05:38 ALT 24 Units/L (12-78) 03/25/18 05:38 Alkaline Phosphatase 94 Units/L (46-116) 03/25/18 05:38 Creatine Kinase 57 Units/L (26-192) 03/22/18 14:25 CK-MB (CK-2) 1.2 ng/mL (0-4.0) 03/22/18 14:25 CK/CKMB % Calc 2.1 % (<4) 03/22/18 14:25 Troponin I < 0.02 ng/mL (0-1.5) 03/22/18 14:25 Total Protein 5.9 g/dL (6.4-8.2) L 03/25/18 05:38 Albumin 3.1 g/dL (3.4-5.0) L 03/25/18 05:38 Globulin 2.8 g/dL (2.5-4.5) 03/25/18 05:38 Albumin/Globulin Ratio 1.1 Ratio (1.1-2.1) 03/25/18 05:38 Specimen Type Clean catch urine 03/22/18 14:25 Urine Color Yellow (YELLOW) 03/22/18 14:25 Urine Appearance Clear (CLEAR) 03/22/18 14:25 Urine pH 8.0 (5.0 - 8.0) 03/22/18 14:25 Ur Specific [place] 1.015 (1.000-1.030) 03/22/18 14:25 Urine Protein Negative (NEGATIVE) 03/22/18 14:25 Urine Glucose (UA) Negative (NEGATIVE) 03/22/18 14:25 Urine Ketones Negative (NEGATIVE) 03/22/18 14:25 Urine Occult Blood Negative (NEGATIVE) 03/22/18 14:25 Urine Nitrite Negative (NEGATIVE) 03/22/18 14:25 Urine Bilirubin Negative (NEGATIVE) 03/22/18 14:25 Urine Urobilinogen Normal (NORMAL) 03/22/18 14:25 Ur Leukocyte Esterase Negative (NEGATIVE) 03/22/18 14:25 - Plan (1) Pneumonia Status: Acute Qualifiers: Pneumonia type: due to unspecified organism Laterality: right Lung location: lower lobe of lung Qualified Code(s): J18.1 - Lobar pneumonia, unspecified organism Plan: pneumonia protocol, antibiotics, respiratory treatments, supplemental oxygen, continue to monitor (2) Altered mental status Status: Acute Qualifiers: Altered mental status type: transient alteration of awareness Qualified Code(s): R40.4 - Transient alteration of awareness Plan: ZYPREXA 5MG PO DAILY, ZYPREXA 10MG PO HS, CONTINUE TO MONITOR (3) Insomnia Status: Acute Qualifiers: Insomnia type: unspecified Qualified Code(s): G47.00 - Insomnia, unspecified Plan: ZYPREXA, KLONPIN 1MG PO HS, CONTINUE TO MONITOR
[2018-03-26] MEDS: RESTORIL CAP 15 MG PO PRN (01:43)
[2018-03-26] MEDS: DUONEB 0.5 MG/3 MG NEB SCH ×3 (09:05→16:16)
[2018-03-26 09:52] LABS: BASOPHILS % (AUTO) 0.7 % (0.2-1.0); EOSINOPHILS # (AUTO) 0.2 x10^3/uL (0.0-0.2); EOSINOPHILS % (AUTO) 4.3 % (0.9-2.9); HEMATOCRIT 35.1 % (36.0-47.0); LYMPHOCYTES # (AUTO) 0.7 X10^3/uL (1.3-2.9); LYMPHOCYTES % (AUTO) 17.8 % (21.0-51.0); MEAN CORPUSCULAR HEMOGLOBIN 33.4 pg (27.0-34.0); MEAN CORPUSCULAR VOLUME 98.2 fL (80.0-100.0); MEAN PLATELET VOLUME 8.7 fL (7.4-11.0); MONOCYTES # (AUTO) 0.5 x10^3/uL (0.3-0.8); NEUTROPHILS # (AUTO) 2.7 x10^3/uL (2.2-4.8); NEUTROPHILS % (AUTO) 66.2 % (42.0-75.0); PLATELET COUNT 117 X10^3/uL (150.0-450.0); RED BLOOD COUNT 3.57 X10^6/uL (3.5-5.4); RED CELL DISTRIBUTION WIDTH 13.4 % (11.6-16.5); WHITE BLOOD COUNT 4.1 X10^3/uL (3.6-10.0)
[2018-03-26] MEDS ORDERED: NORVASC TAB 2.5 MG ONE (09:55)
[2018-03-26] MEDS ORDERED: LEXAPRO ONE (09:56)
[2018-03-26] MEDS ORDERED: ZESTRIL TAB 20 MG ONE ×2 (09:57→20:16)
[2018-03-26] MEDS: ARICEPT TAB 5 MG PO SCH (09:58)
[2018-03-26] MEDS: COLACE CAP 100 MG PO SCH ×2 (09:59→20:45)
[2018-03-26] MEDS: LEXAPRO PO SCH (10:00)
[2018-03-26] MEDS: CRESTOR TAB 10 MG PO SCH (10:00)
[2018-03-26] MEDS: LEVAQUIN TAB 500 MG PO SCH (10:00)
[2018-03-26] MEDS: MIRALAX POWDER (1 DOSE 17 G) PO SCH (10:01)
[2018-03-26] MEDS: LOVAZA PO SCH ×2 (10:01→20:47)
[2018-03-26] MEDS: MOBIC TAB 15 MG PO SCH (10:01)
[2018-03-26] MEDS: ROBITUSSIN DM PO SCH ×4 (10:02→20:47)
[2018-03-26] MEDS: NORVASC TAB 2.5 MG PO SCH (10:02)
[2018-03-26] MEDS: PriLOSEC PO SCH (10:02)
[2018-03-26] MEDS: PERIACTIN TAB 4 MG PO SCH ×2 (10:02→20:46)
[2018-03-26] MEDS: PRESER VISION PO SCH (10:03)
[2018-03-26] MEDS: ZESTRIL TAB 20 MG PO SCH ×2 (10:03→20:47)
[2018-03-26] MEDS: [UNRECOGNIZED DRUG - OTHER] PO SCH ×2 (10:03→20:50)
[2018-03-26] MEDS: ZyPREXA TAB 5 MG PO SCH ×2 (10:03→20:46)
[2018-03-26] MEDS: TAB-A-VITE PO SCH (10:03)
[2018-03-26 10:29] LABS: ALANINE AMINOTRANSFERASE 22 Units/L (12-78); ALBUMIN 2.9 g/dL (3.4-5.0); ALKALINE PHOSPHATASE 86 Units/L (46-116); ASPARTATE AMINO TRANSFERASE 18 Units/L (15-37); BLOOD UREA NITROGEN 15 mg/dL (7-18); CARBON DIOXIDE 29.6 mmol/L (21-32); CHLORIDE 108 mmol/L (98-107); COR CA(FOR HYPOALB) 8.9 mg/dL (8.5-10.1); CREATININE 0.67 mg/dL (0.55-1.02); SODIUM 144 mmol/L (136-145); TOTAL PROTEIN 5.7 g/dL (6.4-8.2); eGFR NON BLACK RACES > 60 (>60)
[2018-03-26] MEDS: ATIVAN TAB 0.5 MG PO SCH (20:46)
[2018-03-26] MEDS: NORCO 10/325 TAB PO PRN (22:33)
[2018-03-27 05:49] LABS: BASOPHILS % (AUTO) 0.5 % (0.2-1.0); EOSINOPHILS # (AUTO) 0.1 x10^3/uL (0.0-0.2); EOSINOPHILS % (AUTO) 3.3 % (0.9-2.9); HEMATOCRIT 33.5 % (36.0-47.0); HEMOGLOBIN 11.6 g/dL (12.0-16.0); LYMPHOCYTES # (AUTO) 0.7 X10^3/uL (1.3-2.9); LYMPHOCYTES % (AUTO) 17.2 % (21.0-51.0); MEAN CORPUSCULAR HEMOGLOBIN 33.8 pg (27.0-34.0); MEAN CORPUSCULAR HGB CONC 34.5 g/dL (33.0-35.0); MEAN CORPUSCULAR VOLUME 97.8 fL (80.0-100.0); MEAN PLATELET VOLUME 9.5 fL (7.4-11.0); MONOCYTES # (AUTO) 0.5 x10^3/uL (0.3-0.8); MONOCYTES % (AUTO) 11.3 % (0.0-13.0); NEUTROPHILS # (AUTO) 2.8 x10^3/uL (2.2-4.8); NEUTROPHILS % (AUTO) 67.7 % (42.0-75.0); PLATELET COUNT 120 X10^3/uL (150.0-450.0); RED BLOOD COUNT 3.43 X10^6/uL (3.5-5.4); RED CELL DISTRIBUTION WIDTH 13.2 % (11.6-16.5); WHITE BLOOD COUNT 4.1 X10^3/uL (3.6-10.0)
[2018-03-27 06:04] LABS: ALANINE AMINOTRANSFERASE 21 Units/L (12-78); ALBUMIN 2.7 g/dL (3.4-5.0); ALKALINE PHOSPHATASE 85 Units/L (46-116); ASPARTATE AMINO TRANSFERASE 18 Units/L (15-37); BLOOD UREA NITROGEN 25 mg/dL (7-18); CALCIUM 7.9 mg/dL (8.5-10.1); CARBON DIOXIDE 28.9 mmol/L (21-32); CHLORIDE 109 mmol/L (98-107); COR CA(FOR HYPOALB) 8.9 mg/dL (8.5-10.1); CREATININE 0.77 mg/dL (0.55-1.02); SODIUM 145 mmol/L (136-145); TOTAL PROTEIN 5.4 g/dL (6.4-8.2); eGFR NON BLACK RACES > 60 (>60)
--- NOTE | 2018-03-27 07:08 | RAD ---
Examination: AP chest History: SOB Comparison 03/25/2018 Findings: Continued cardiomegaly with aortic dilatation. Interstitial fibrotic scarring again noted e specially right upper lobe. No acute consolidation. Impression: No change; no acute findings. The current radiographic image is mismarked left/right. Reported By:
[2018-03-27] MEDS ORDERED: NORVASC TAB 2.5 MG ONE (08:17)
[2018-03-27] MEDS ORDERED: ZESTRIL TAB 20 MG ONE ×2 (08:19→20:10)
[2018-03-27] MEDS ORDERED: LEXAPRO ONE (08:19)
[2018-03-27] MEDS: DUONEB 0.5 MG/3 MG NEB SCH ×7 (08:51→21:36)
[2018-03-27] MEDS: PriLOSEC PO SCH (09:04)
[2018-03-27] MEDS: COLACE CAP 100 MG PO SCH ×2 (09:04→20:51)
[2018-03-27] MEDS: LEVAQUIN TAB 500 MG PO SCH (09:04)
[2018-03-27] MEDS: ARICEPT TAB 5 MG PO SCH (09:05)
[2018-03-27] MEDS: LEXAPRO PO SCH (09:05)
[2018-03-27] MEDS: TAB-A-VITE PO SCH (09:05)
[2018-03-27] MEDS: NORVASC TAB 2.5 MG PO SCH (09:05)
[2018-03-27] MEDS: PERIACTIN TAB 4 MG PO SCH ×2 (09:05→21:05)
[2018-03-27] MEDS: LOVAZA PO SCH ×2 (09:06→21:04)
[2018-03-27] MEDS: MOBIC TAB 15 MG PO SCH (09:06)
[2018-03-27] MEDS: CRESTOR TAB 10 MG PO SCH (09:06)
[2018-03-27] MEDS: ZESTRIL TAB 20 MG PO SCH ×2 (09:07→20:51)
[2018-03-27] MEDS: MIRALAX POWDER (1 DOSE 17 G) PO SCH (09:07)
[2018-03-27] MEDS: ROBITUSSIN DM PO SCH (09:07)
[2018-03-27] MEDS: ZyPREXA TAB 5 MG PO SCH ×2 (09:07→21:05)
[2018-03-27] MEDS: [UNRECOGNIZED DRUG - OTHER] PO SCH ×2 (09:19→21:05)
[2018-03-27] MEDS: PRESER VISION PO SCH (09:19)
[2018-03-27] MEDS: NORCO 10/325 TAB PO PRN (20:50)
[2018-03-27] MEDS: ATIVAN TAB 0.5 MG PO SCH (20:51)
[2018-03-27] MEDS: RESTORIL CAP 15 MG PO PRN (23:46)
[2018-03-28 06:37] LABS: BASOPHILS % (AUTO) 0.8 % (0.2-1.0); EOSINOPHILS # (AUTO) 0.1 x10^3/uL (0.0-0.2); EOSINOPHILS % (AUTO) 3.4 % (0.9-2.9); HEMATOCRIT 34.2 % (36.0-47.0); HEMOGLOBIN 11.8 g/dL (12.0-16.0); LYMPHOCYTES # (AUTO) 0.7 X10^3/uL (1.3-2.9); LYMPHOCYTES % (AUTO) 18.4 % (21.0-51.0); MEAN CORPUSCULAR HEMOGLOBIN 33.9 pg (27.0-34.0); MEAN CORPUSCULAR HGB CONC 34.5 g/dL (33.0-35.0); MEAN CORPUSCULAR VOLUME 98.1 fL (80.0-100.0); MEAN PLATELET VOLUME 9.1 fL (7.4-11.0); MONOCYTES # (AUTO) 0.4 x10^3/uL (0.3-0.8); MONOCYTES % (AUTO) 11.3 % (0.0-13.0); NEUTROPHILS # (AUTO) 2.5 x10^3/uL (2.2-4.8); NEUTROPHILS % (AUTO) 66.1 % (42.0-75.0); PLATELET COUNT 77 X10^3/uL (150.0-450.0); RED BLOOD COUNT 3.49 X10^6/uL (3.5-5.4); RED CELL DISTRIBUTION WIDTH 13.5 % (11.6-16.5); WHITE BLOOD COUNT 3.8 X10^3/uL (3.6-10.0)
[2018-03-28 06:50] LABS: ALANINE AMINOTRANSFERASE 23 Units/L (12-78); ALBUMIN 2.9 g/dL (3.4-5.0); ALKALINE PHOSPHATASE 92 Units/L (46-116); ASPARTATE AMINO TRANSFERASE 22 Units/L (15-37); BLOOD UREA NITROGEN 23 mg/dL (7-18); CALCIUM 8.2 mg/dL (8.5-10.1); CARBON DIOXIDE 26.8 mmol/L (21-32); CHLORIDE 108 mmol/L (98-107); COR CA(FOR HYPOALB) 9.1 mg/dL (8.5-10.1); CREATININE 0.64 mg/dL (0.55-1.02); SODIUM 143 mmol/L (136-145); TOTAL PROTEIN 5.8 g/dL (6.4-8.2); eGFR NON BLACK RACES > 60 (>60)
--- NOTE | 2018-03-28 08:20 | PCM.PROG ---
Progress Note - Progress Note for Day of Date of Exam: 03/27/18 - Subjective Subjective: WAS ADMITTED FOR PNEUMONIA, ALTERED MENTAL STATUS, AND INSOMNIA. PT HAD BEEN TREATED WITH IV ATBX, RESP THERAPY, SUPPLEMENTAL O2 WITH IMPROVEMENT IN RESPIRATORY ILLNESS. PT EXPERIENCED INCREASED DEMENTIA AND CONFUSION DURING HER INPT STAY. PT WAS RESTARTED ON PO ATIVAN Q HS LAST PM AND FAMILY REPORTS SHE SLEPT ALL NIGHT, NOT SEDATED THIS AM. PT SITTING ON BEDSIDE WITH FAMILY IN ROOM, ATE BREAKFAST W/O N/V. PLAN TO CONTINUE WITH CURRENT MEDICATION REGIMEN REPEAT AM LABS, DISCUSSED POSSIBLE D/C HOME ON WEDNESDAY - Past Medical Family Social History Past Med/Fam/Surg Hx: No changes since H&P Allergies: Allergies Penicillins Allergy (Verified 09/21/17 20:54) Sulfa (Sulfonamide Antibiotics) [SULFA] Allergy (Verified 09/21/17 20:54) - Review of Systems ROS: No change since H&P - Vital Signs and I&O's Vital Signs: Temperature 97.6 F Pulse Rate [Left Brachial] 61 Pulse Rate 77 Respiratory Rate 18 Blood Pressure [Right Arm] 135/71 Blood Pressure [Left Arm] 123/64 Blood Pressure 163/94 O2 Sat by Pulse Oximetry 95 Intake and Output: Intake & Output 03/25/18 03/26/18 03/27/18 03/28/18 11:59 11:59 11:59 11:59 Intake Total 8 / 1838 840 / 840 720 / 720 600 / 600 Balance 183 / 1838 840 / 840 720 / 720 600 / 600 - Physical Exam Oriented: Not Oriented Eyes: Normal Ear: Normal Nose: Normal Throat: Normal Respiratory: Diminished Cardiovascular: Normal. negative: Murmur : Normal Auscultation: Bowel Sounds: Normal Tenderness: Normal Skin: Decreased Turgur Musculoskeletal: Right, Left, Knee, Back:Lumbar, Crepitance Psychiatric: Normal Mood Description: Anxious Affect: Anxious Speech Pattern: Appropriate - Laboratory and Diagnostics Result Diagrams: 03/28/18 05:40 03/28/18 05:40 Labs: 03/22/18 17:10 Blood Blood Culture - Final 03/22/18 17:10 Blood Blood Culture - Final Laboratory WBC 3.8 X10^3/uL (3.6-10.0) 03/28/18 05:40 RBC 3.49 X10^6/uL (3.5-5.4) L 03/28/18 05:40 Hgb 11.8 g/dL (12.0-16.0) L 03/28/18 05:40 Hct 34.2 % (36.0-47.0) L 03/28/18 05:40 MCV 98.1 fL (80.0-100.0) 03/28/18 05:40 MCH 33.9 pg (27.0-34.0) 03/28/18 05:40 MCHC 34.5 g/dL (33.0-35.0) 03/28/18 05:40 RDW 13.5 % (11.6-16.5) 03/28/18 05:40 Plt Count 77 X10^3/uL (150.0-450.0) L 03/28/18 05:40 MPV 9.1 fL (7.4-11.0) 03/28/18 05:40 Neut % (Auto) 66.1 % (42.0-75.0) 03/28/18 05:40 Lymph % (Auto) 18.4 % (21.0-51.0) L 03/28/18 05:40 [place] % (Auto) 11.3 % (0.0-13.0) 03/28/18 05:40 Eos % (Auto) 3.4 % (0.9-2.9) H 03/28/18 05:40 Baso % (Auto) 0.8 % (0.2-1.0) 03/28/18 05:40 Neut # (Auto) 2.5 x10^3/uL (2.2-4.8) 03/28/18 05:40 Lymph # (Auto) 0.7 X10^3/uL (1.3-2.9) L 03/28/18 05:40 [place] # (Auto) 0.4 x10^3/uL (0.3-0.8) 03/28/18 05:40 Eos # (Auto) 0.1 x10^3/uL (0.0-0.2) 03/28/18 05:40 Baso # (Auto) 0.0 X10^3/uL (0.0-0.1) 03/28/18 05:40 Absolute Nucleated RBC 0.1 /100WBC 03/28/18 05:40 Sodium 143 mmol/L (136-145) 03/28/18 05:40 Corrected Sodium TNP 03/28/18 05:40 Potassium 4.1 mmol/L (3.5-5.1) 03/28/18 05:40 Chloride 108 mmol/L (98-107) H 03/28/18 05:40 Carbon Dioxide 26.8 mmol/L (21-32) 03/28/18 05:40 BUN 23 mg/dL (7-18) H 03/28/18 05:40 Creatinine 0.64 mg/dL (0.55-1.02) 03/28/18 05:40 Est GFR (MDRD) Af Amer > 60 (>60) 03/28/18 05:40 Est GFR (MDRD) Non-Af > 60 (>60) 03/28/18 05:40 Glucose 93 mg/dL (65-99) 03/28/18 05:40 Calcium 8.2 mg/dL (8.5-10.1) L 03/28/18 05:40 Corrected Calcium 9.1 mg/dL (8.5-10.1) 03/28/18 05:40 Total Bilirubin 0.30 mg/dL (0.2-1.0) 03/28/18 05:40 AST 22 Units/L (15-37) 03/28/18 05:40 ALT 23 Units/L (12-78) 03/28/18 05:40 Alkaline Phosphatase 92 Units/L (46-116) 03/28/18 05:40 Creatine Kinase 57 Units/L (26-192) 03/22/18 14:25 CK-MB (CK-2) 1.2 ng/mL (0-4.0) 03/22/18 14:25 CK/CKMB % Calc 2.1 % (<4) 03/22/18 14:25 Troponin I < 0.02 ng/mL (0-1.5) 03/22/18 14:25 Total Protein 5.8 g/dL (6.4-8.2) L 03/28/18 05:40 Albumin 2.9 g/dL (3.4-5.0) L 03/28/18 05:40 Globulin 2.9 g/dL (2.5-4.5) 03/28/18 05:40 Albumin/Globulin Ratio 1.0 Ratio (1.1-2.1) L 03/28/18 05:40 Specimen Type Clean catch urine 03/22/18 14:25 Urine Color Yellow (YELLOW) 03/22/18 14:25 Urine Appearance Clear (CLEAR) 03/22/18 14:25 Urine pH 8.0 (5.0 - 8.0) 03/22/18 14:25 Ur Specific [place] 1.015 (1.000-1.030) 03/22/18 14:25 Urine Protein Negative (NEGATIVE) 03/22/18 14:25 Urine Glucose (UA) Negative (NEGATIVE) 03/22/18 14:25 Urine Ketones Negative (NEGATIVE) 03/22/18 14:25 Urine Occult Blood Negative (NEGATIVE) 03/22/18 14:25 Urine Nitrite Negative (NEGATIVE) 03/22/18 14:25 Urine Bilirubin Negative (NEGATIVE) 03/22/18 14:25 Urine Urobilinogen Normal (NORMAL) 03/22/18 14:25 Ur Leukocyte Esterase Negative (NEGATIVE) 03/22/18 14:25 - Plan (1) Acute bronchitis Status: Acute Qualifiers: Bronchitis organism: other organism Qualified Code(s): J20.8 - Acute bronchitis due to other specified organisms Plan: CONTINUE IV ATBX, RESP THERAPY, SUPPLEMENTAL O2. AM LABS, CURRENT MEDICATION REGIMEN CONTINUED, HIGH RISK FALL,. BP CONTROL, SUPPORTIVE CARE (2) Dementia Status: Acute (3) Generalized anxiety disorder Status: Acute (4) Generalized weakness Status: Acute (5) Congestive heart failure Status: Acute (6) Insomnia Status: Acute Qualifiers: Insomnia type: unspecified Qualified Code(s): G47.00 - Insomnia, unspecified Plan: ZYPREXA, KLONPIN 1MG PO HS, CONTINUE TO MONITOR
[2018-03-28] MEDS ORDERED: NORVASC TAB 2.5 MG ONE (08:33)
[2018-03-28] MEDS ORDERED: LEXAPRO ONE (08:34)
[2018-03-28] MEDS ORDERED: ZESTRIL TAB 20 MG ONE (08:34)
[2018-03-28] MEDS: LOVAZA PO SCH (08:40)
[2018-03-28] MEDS: NORVASC TAB 2.5 MG PO SCH (08:40)
[2018-03-28] MEDS: LEVAQUIN TAB 500 MG PO SCH (08:41)
[2018-03-28] MEDS: ARICEPT TAB 5 MG PO SCH (08:41)
[2018-03-28] MEDS: TAB-A-VITE PO SCH (08:41)
[2018-03-28] MEDS: ZyPREXA TAB 5 MG PO SCH (08:41)
[2018-03-28] MEDS: LEXAPRO PO SCH (08:41)
[2018-03-28] MEDS: PERIACTIN TAB 4 MG PO SCH (08:41)
[2018-03-28] MEDS: ZESTRIL TAB 20 MG PO SCH (08:41)
[2018-03-28] MEDS: MOBIC TAB 15 MG PO SCH (08:41)
[2018-03-28] MEDS: PriLOSEC PO SCH (08:41)
[2018-03-28] MEDS: CRESTOR TAB 10 MG PO SCH (08:42)
[2018-03-28] MEDS: COLACE CAP 100 MG PO SCH (08:42)
[2018-03-28] MEDS: MIRALAX POWDER (1 DOSE 17 G) PO SCH (08:43)
[2018-03-28] MEDS: PRESER VISION PO SCH (08:44)
[2018-03-28] MEDS: [UNRECOGNIZED DRUG - OTHER] PO SCH (08:45)
[2018-03-28 11:57] VITALS: BP 126/76
--- NOTE | 2018-05-03 00:15 | DR.CARTERD ---
- Discharge Summary for: Discharge Summary for Date of:: 03/28/18 - Admission Date Date of Admission: 03/22/18 - Admission Diagnoses Admission Diagnosis: (1) Pneumonia (2) Altered mental status (3) Insomnia - Discharge Date Discharge Date: 03/28/18 - Discharge Diagnoses Discharge Diagnosis: (1) Pneumonia (2) Altered mental status (3) Insomnia - Hospital Course Hospital Course: Ms. Mendieta is a 87 year old patient of ours who presented to the emergency room with complaints of headache and abdominal pain. Patients daughter reported that patient had been awake all day and night. Symptoms started this day. Daughter also reported that patient had been confused and disoriented. Patient denied nausea or vomiting. On arrival, vitals were [id number]%-163/94. Labs were obtained. Abnormal lab values included the following: Plt count 139, carbon dioxide 33.1, glucose 100. An abdomen/pelvis CT with contrast was obtained and revealed: Previous cholecystectomy which is unchanged with no acute intra- abdominal abnormality seen. No hydronephrosis or renal stones and no CT evidence of urinary obstruction. Status post hysterectomy with no pelvic mass. Moderate diverticulosis of the sigmoid colon with no pericolonic inflammation. 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 Bibasilar fibrosis and scarring with a questionable early infiltrate or progressive scarring along the right lung base, recommend follow-up. EKG revealed: sinus rhythm with HR 62. She was admitted for further evaluation and treatment of pneumonia, altered mental status, and insomnia. She was started on NS at 30ml/hr, levaquin 500mg IV daily, and duonebs. We started Zyprexa 5mg po daily. She continued with confusion. A brain CT was obtained and reported: Stable exam without acute intracranial abnormality. A lumbar CT was obtained and reported: There is moderate to severe disc space narrowing throughout with large marginal osteophytes throughout and vacuum disc phenomena throughout. There is moderate scoliosis convex to the left and centered along the mid lumbar region. There is minimal subluxation L5 on S1. No fracture is seen. There is minimal retrolisthesis of L1 on L2 . The vertebral body height is well maintained throughout. There are moderate sclerotic changes of the facets throughout with no pars defects. The bones are severely osteopenic. There are moderate hypertrophic and sclerotic changes of the facets with ligament flavum hypertrophy causing diffuse moderate to severe spinal stenosis which is most prominent L4-5 and L3-4 . There are small central disc bulges at L3-4 , L4-5 , and L2-3 . There is a moderate disc bulge at L1-2 . The paravertebral soft tis sues are normal. The sacrum and SI joints are intact. We continued treatment and monitored. On day seven, patient reported improvement. We restarted home medication of Ativan at bedtime and patient slept through the night. She was alert and oriented. Vital signs stable. Labs wnl. We planned for discharge. Instructions for medications and follow up were discussed with patient and family, both voiced understanding. Patient discharged home in stable condition with family. - Discharge Medications Discharge Medications: Home Medication List Preser Vision 1 tab PO DAILY 03/22/18 [History] Viactir 1 tab PO BID 03/22/18 [History] amlodipine 1 tab PO DAILY 03/22/18 [History] docusate sodium 1 cap PO BID 03/22/18 [History] donepezil 1 tab PO DAILY 03/22/18 [History] lisinopril 1 tab PO BID 03/22/18 [History] olanzapine 1 tab PO HS 03/22/18 [History] omega 1-yhb-yve-fish oil [Fish Oil] 1,200 mg PO BID 03/22/18 [History] polyethylene glycol 3350 17 g/day PO DAILY 03/22/18 [History] rosuvastatin [Crestor] 1 tab PO DAILY 03/22/18 [History] olanzapine [Zyprexa] 5 mg PO QDAY #30 tab 03/28/18 [Rx] temazepam [Restoril] 15 mg PO QHS PRN #30 cap 03/28/18 [Rx] Prescriptions: olanzapine [Zyprexa] Matthew Nelson temazepam [Restoril] Matthew Nelson Hydrocodone/Acetaminophen [Hydrocodone-Acetamin 10-325 mg] 1 tab PO TID 06/23/16 lorazepam 0.5 mg PO HS PRN 06/23/16 meloxicam 15 mg PO DAILY 06/23/16 omeprazole 2 cap PO DAILY 06/23/16 cyproheptadine 1 tab PO BID 11/23/16 ccnekipz-qhy-RY-lycopen-lutein [Centrum Silver] 1 tab PO DAILY 11/23/16 swhrw-3y-zmc-epa-fish oil 1 tab PO BID 01/01/17 escitalopram oxalate [Lexapro] 20 mg PO DAILY 03/02/17 montelukast 10 mg PO DAILY 03/02/17 - Discharge Disposition Discharge Disposition: Patient is to follow up in our office in one week.
== END 2018-03-28 11:00 | disposition home or self-care (01) | DRG 195 ==
LOC: ER 12:40 → ICU 17:04 → MED/SURG 03-23 15:30
PROVIDERS: ADMIT Internal Medicine; ATTEND Internal Medicine
DX: R26.81 Unsteadiness on feet; J18.9 Pneumonia, unspecified organism; M41.86 Other forms of scoliosis, lumbar region; R10.9 Unspecified abdominal pain; F03.90 Unspecified dementia, unspecified severity, without behavioral disturbance, psychotic disturbance, mood disturbance, and anxiety; M85.88 Other specified disorders of bone density and structure, other site; F51.8 Other sleep disorders not due to a substance or known physiological condition; F40.240 Claustrophobia; G47.09 Other insomnia; R41.82 Altered mental status, unspecified; I10 Essential (primary) hypertension; R51 Headache
CPT/HCPCS: 36415; 70450; 71010; 71045; 72131; 74176; 80053; 81003; 82550; 82553; 84484; 85025; 87040; 93005; 94640; 96365; 96374; 97116; 97163; 97166; 97530; 99231; 99284; 99285; A4222; J0696; J1956; J7620